=== PATIENT | female | born 1955 | race Caucasian/White ===

== ENCOUNTER 2016-04-02 16:03 | Inpatient (IN) | payer OTHER ==
[~2016-04-02] VITALS: Ht 162.6 cm; Wt 105.3 kg
[~2016-04-02 16:03] MED LIST: AMIT10TA6 PO; ASPI81TA3 PO; CHOL400C PO; HYDR-906 PO; PARO20TA58 PO; TRAM50TA2 PO
[2016-04-02 18:00] VITALS: BP 127/57; PULSE 80; RESP 18
[2016-04-02 19:30] VITALS: BP 115/58; PULSE 80; RESP 18
[2016-04-02] MEDS ORDERED: MAGNESIUM HYDROXIDE 30ML CUP PO PRN (20:00)
[2016-04-02] MEDS ORDERED: ONDANSETRON 4 MG INJ IV PRN (20:00)
[2016-04-02] MEDS ORDERED: BISACODYL 10 MG SUPP PR PRN (20:00)
[2016-04-02] MEDS ORDERED: BISACODYL (EC) 5 MG TAB PO PRN (20:00)
[2016-04-02] MEDS ORDERED: LACTULOSE 30ML CUP PO PRN (20:00)
[2016-04-02] MEDS ORDERED: ACETAMINOPHEN 325 MG TAB PO PRN (20:00)
[2016-04-02] MEDS: DOCUSATE SODIUM 100 MG CAP PO SCH (20:41)
[2016-04-02] MEDS: SENNA TAB PO SCH (20:46)
[2016-04-02] MEDS: HYDROCODONE/APAP (10/325) TAB PO PRN (20:46)
[2016-04-02] MEDS: AMITRIPTYLINE 10 MG TAB PO SCH (22:00)
[2016-04-03 06:27] LABS: ADD UMIC YES; URINE BILIRUBIN (Dip) NEGATIVE (NEGATIVE); URINE BLOOD (Dip) 2+ (NEGATIVE); URINE COLOR YELLOW (YELLOW); URINE GLUCOSE (Dip) NEGATIVE (NEGATIVE); URINE KETONES (Dip) 15 (NEGATIVE); URINE LEUKOCYTE ESTERASE (Dip) NEGATIVE (NEGATIVE); URINE NITRITE (Dip) NEGATIVE (NEGATIVE); URINE TOTAL PROTEIN (Dip) NEGATIVE (NEGATIVE); URINE UROBILINOGEN (Dip) 1.0 E.U./dL (0.1-1.0)
[2016-04-03 06:47] LABS: MUCUS,URINE MODERATE; SQUAMOUS EPITHELIAL CELL,UR FEW
[2016-04-03 07:13] LABS: BASOPHILS % 0.4 % (0.0-2.0); EOSINOPHILS # 0.1 10^3/ul (0.0-0.5); EOSINOPHILS % 0.7 % (0.0-7.0); HEMATOCRIT 38.3 % (37.0-47.0); HEMOGLOBIN 13.1 g/dl (12.0-16.0); LYMPHOCYTES # 2.4 10^3/ul (0.8-2.9); LYMPHOCYTES % 30.1 % (15.0-51.0); MEAN CORPUSCULAR HEMOGLOBIN 30.1 pg (29.0-33.0); MEAN CORPUSCULAR HGB CONC 34.3 g/dl (32.0-37.0); MEAN CORPUSCULAR VOLUME 87.7 fl (82.0-101.0); MEAN PLATELET VOLUME 8.2 fl (7.4-10.4); MONOCYTE # 0.7 10^3/ul (0.3-0.9); MONOCYTES % 8.4 % (0.0-11.0); NEUTROPHIL # 4.9 10^3/ul (1.6-7.5); NEUTROPHILS % 60.4 % (39.0-77.0); PLATELET COUNT 245 10^3/UL (140-440); RED BLOOD COUNT 4.36 10^6/ul (4.20-5.40); RED CELL DISTRIBUTION WIDTH 13.4 % (11.5-14.5)
[2016-04-03 07:23] LABS: CONDITION 1
[2016-04-03 07:25] LABS: ALBUMIN 3.3 g/dl (3.3-4.9); POTASSIUM 3.1 mmol/L (3.5-5.1)
[2016-04-03 07:27] LABS: CREATININE 0.54 mg/dl (0.44-1.00)
[2016-04-03 07:28] LABS: ALBUMIN/GLOBULIN RATIO 1.13; BILIRUBIN,INDIRECT 0.7 mg/dl (0-1.1); BILIRUBIN,TOTAL 0.7 mg/dl (0.2-1.3); TOTAL PROTEIN 6.2 g/dl (6.1-8.1)
[2016-04-03 07:29] LABS: CALCIUM 8.6 mg/dl (8.4-10.2)
[2016-04-03 07:30] VITALS: BP 120/57; PULSE 86; RESP 20
[2016-04-03] MEDS: HYDROCODONE/APAP (10/325) TAB PO PRN ×4 (09:02→23:00)
[2016-04-03] MEDS: SENNA TAB PO SCH ×2 (09:24→21:00)
[2016-04-03] MEDS: CHOLECALCIFEROL 400 UNITS TAB PO SCH (09:24)
[2016-04-03] MEDS: DOCUSATE SODIUM 100 MG CAP PO SCH ×2 (09:24→21:00)
[2016-04-03] MEDS: AMLODIPINE 10 MG TAB PO SCH (09:25)
[2016-04-03] MEDS: PAROXETINE 20 MG TAB PO SCH (09:27)
--- NOTE | 2016-04-03 13:02 | CONS ---
DATE OF ADMISSION: 04/02/2016 DATE OF CONSULTATION: 04/03/2016 REHABILITATION POST-ADMISSION PHYSICIAN EVALUATION REHABILITATION IMPAIRMENT CATEGORY: Lumbar spinal stenosis with lumbar spondylolisthesis and radicu lopathy status post decompressive laminectomy and interbody fusion. ACTIVE COMORBIDITIES: 1. Acute pain syndrome. 2. Depression. 3. Migraine headaches. 4. Impairments in self-care and mobility. HISTORY OF PRESENT ILLNESS: The patient is a pleasant 60-year-old female with a history of severe r adiating low back pain despite conservative measures. The patient underwent a lumbar laminectomy wi th interbody fusion on 03/28/2016. The patient's postoperative course has been notable for acute po stoperative pain in addition to significant impairments in self-care and mobility as compared to [place]. The patient has been cleared to transfer to the rehabilitation unit for comprehensive interd isciplinary rehab care. FUNCTIONAL HISTORY: Prior to recent events, she was independent in self-care tasks and mobility. C urrently, the patient requires minimal to moderate assist for self-care and mobility tasks. SOCIAL HISTORY: The patient reports living at home and hopes to return there upon discharge. PAST MEDICAL HISTORY: 1. Lumbar radiculopathy and spondylolisthesis as described above. 2. Depression. 3. Migraine headaches. CURRENT MEDICATIONS: 1. [place] p.r.n. 2. Elavil 10 mg p.o. at bedtime. 3. Norvasc 10 mg p.o. daily. 4. Flexeril 10 mg p.o. t.i.d. p.r.n. 5. Dilaudid p.r.n. 6. Paxil 20 mg p.o. daily. 7. Senokot 2 tabs p.o. b.i.d. ALLERGIES: THE PATIENT WITH NO KNOWN DRUG ALLERGIES. PHYSICAL EXAMINATION: VITAL SIGNS: The patient is currently afebrile with stable vital signs. HEENT: Extraocular motion intact. Oropharynx clear. NECK: Supple. LUNGS: Clear anteriorly. CARDIAC: S1, S2. ABDOMEN: Soft, nontender, positive bowel sounds. NEUROLOGIC: She is awake and alert and oriented x3. She can follow simple 1-step commands. Crania l nerves are grossly intact. She has good strength in bilateral upper extremity, antigravity streng th in bilateral lower extremity, impaired dynamic balance. PLAN: The patient has been admitted for comprehensive interdisciplinary acute rehab and is anticipa martha to tolerate 3 hours of daily therapy in divided doses for at least 5/7 days a week. Treatment p yvrose will include: 1. Physical therapy to focus on bed mobility, transfers, and household ambulation with the goal of having the patient reach standby assist level. 2. Occupational therapy to focus on hygiene, grooming, dressing, bathing, and toileting activities with goal of having the patient reach standby assist level. 3. Rehabilitation nursing for carryover of therapeutic interventions with the goal of continent of bowel and bladder and the goal of pain adequately managed on oral medications. ESTIMATED LENGTH OF STAY: 10 days. DISPOSITION GOAL: Home. REHABILITATION BARRIER: Pain. INTERVENTION FOR BARRIER: Comprehensive interdisciplinary approach. I acknowledge that I performed a full physical examination on this patient within 24 hours of admiss ion to the rehabilitation unit and believe the patient is a good candidate for comprehensive interdi sciplinary rehab care and is anticipated to make reasonable goals in a reasonable period of time as outlined above. Dictated By: SCOOTER RIZO/JOSEPHINE Conf#: [id number] DID#: [id number]
--- NOTE | 2016-04-03 14:51 | PN ---
Date/Time of Note Date/Time of Note DATE: 04/03/16 TIME: 14:49 Assessment/Plan VTE Prophylaxis VTE Prophylaxis Intervention: other Assessment/Plan Chief Complaint/Hosp Course 1) back pain - s/p surgery - acute rehab Problems: Subjective 24 Hr Interval Summary Free Text/Dictation Patient comes in with back pain, is s/p surgery and is not getting acute rehab Exam/Review of Systems Vital Signs Vitals Vital Signs Date Time Temp Pulse Resp B/P Pulse Ox O2 Delivery O2 Flow Rate FiO2 04/03/16 07:30 98.4 86 20 120/57 98 Room Air Exam Constitutional: alert, well developed Neck: supple Respiratory: clear to auscultation Cardiovascular: regular rate and rhythm Gastrointestinal: non-tender, soft Extremities: normal pulses Results Result Diagram: 04/03/16 0650 04/03/16 0650 Results 24 hrs Laboratory Tests Test 04/03/16 04:00 04/03/16 06:50 Urine Bilirubin NEGATIVE Urine Calcium Oxalate Crystals OCCASIONAL Urine Clarity CLEAR Urine Color YELLOW Urine Glucose NEGATIVE Urine Hemoglobin 2+ H Urine Ketones 15 Urine Leukocyte Esterase NEGATIVE Urine Microscopic RBC 2-5 Urine Microscopic WBC NONE SEEN Urine Mucus MODERATE Urine Nitrite NEGATIVE Urine Specific [place] 1.010 Urine Squamous Epithelial Cells FEW Urine Total Protein NEGATIVE Urine Urobilinogen 1.0 E.U./dL Urine pH 6.5 Alanine Aminotransferase (ALT/SGPT) 37 Albumin 3.3 Albumin/Globulin Ratio 1.13 Alkaline Phosphatase 96 Anion Gap 13 Aspartate Amino Transf (AST/SGOT) 32 Basophils # 0.0 Basophils % 0.4 Blood Urea Nitrogen 11 Calcium Level 8.6 Carbon Dioxide Level 34 H Chloride Level 97 Creatinine 0.54 Direct Bilirubin 0.00 Eosinophils # 0.1 Eosinophils % 0.7 Globulin 2.90 Glucose Level 94 Hematocrit 38.3 Hemoglobin 13.1 Indirect Bilirubin 0.7 Lymphocytes # 2.4 Lymphocytes % 30.1 Mean Corpuscular Hemoglobin 30.1 Mean Corpuscular Hemoglobin Concent 34.3 Mean Corpuscular Volume 87.7 Mean Platelet Volume 8.2 Monocytes # 0.7 Monocytes % 8.4 Neutrophils # 4.9 Neutrophils % 60.4 Nucleated Red Blood Cells # 0.0 Nucleated Red Blood Cells % 0.0 Platelet Count 245 Potassium Level 3.1 L Red Blood Count 4.36 Red Cell Distribution Width 13.4 Sodium Level 141 Total Bilirubin 0.7 Total Protein 6.2 White Blood Count 8.0 Medications Medications Current Medications Docusate Sodium (Colace) 100 mg BID PO Last administered on 04/03/16at 09:24; Admin Dose 100 MG; Start 04/02/16 at 21:00 Acetaminophen (Tylenol Tab) 650 mg Q4H PRN PO PAIN Last administered on at 13:10; Admin Dose 650 MG; Start 04/02/16 at 20:00 Bisacodyl (Dulcolax Supp) 10 mg DAILY PRN [place] CONSTIPATION; Start 04/02/16 at 20:00 Magnesium Hydroxide (Milk Of Mag) 30 ml BID PRN PO CONSTIPATION; Start at 20:00 Lactulose (Enulose) 20 gm DAILY PRN PO CONSTIPATION; Start 04/02/16 at 20:00 Ondansetron HCl (Zofran Inj) 4 mg Q4H PRN IV NAUSEA AND/OR VOMITING; Start at 20:00 Amitriptyline HCl (Elavil) 10 mg QHS PO ; Start 04/02/16 at 21:00 Paroxetine HCl (Paxil) 20 mg DAILY PO Last administered on 04/03/16at 09:27; Admin Dose 20 MG; Start 04/03/16 at 09:00 Cholecalciferol (Vitamin D) 400 units DAILY PO Last administered on 04/03/16at 09:24; Admin Dose 400 UNITS; Start 04/03/16 at 09:00 Hydromorphone HCl (Dilaudid) 1 mg Q4H PRN IV PAIN; Start 04/02/16 at 20:00 Cyclobenzaprine HCl (Flexeril) 10 mg TID PRN PO MUSCLE SPASMS; Start 04/02/16 at 20:00 Bisacodyl (Dulcolax) 5 mg DAILY PRN PO CONSTIPATION; Start 04/02/16 at 20:00 Senna (Senokot) 2 tab BID PO Last administered on 04/03/16at 09:24; Admin Dose 2 TAB; Start 04/02/16 at 21:00 Amlodipine Besylate (Norvasc) 10 mg DAILY PO Last administered on 04/03/16at 09 :25; Admin Dose 10 MG; Start 04/03/16 at 09:00 Hydralazine HCl (Apresoline) 25 mg Q6H PRN PO ELEVATED BLOOD PRESSURE; Start 04/02/16 at 20:00 Acetaminophen/ Hydrocodone Bitart ([place] (10)) 1 tab Q4H PRN PO mild to mod pain Last administered on 04/03/16at 12:24; Admin Dose 1 TAB; Start at 13:00 JARVIS WITT Apr 03, 2016 14:50
[2016-04-03 20:05] VITALS: BP 122/56; PULSE 95; RESP 18
[2016-04-03] MEDS: AMITRIPTYLINE 10 MG TAB PO SCH (21:04)
[2016-04-04] MEDS: HYDROCODONE/APAP (10/325) TAB PO PRN ×3 (07:05→20:43)
[2016-04-04 08:17] VITALS: BP 141/66; PULSE 90; RESP 20
[2016-04-04] MEDS: SENNA TAB PO SCH ×2 (08:55→21:00)
[2016-04-04] MEDS: PAROXETINE 20 MG TAB PO SCH (08:55)
[2016-04-04] MEDS: DOCUSATE SODIUM 100 MG CAP PO SCH ×2 (08:55→21:00)
[2016-04-04] MEDS: CHOLECALCIFEROL 400 UNITS TAB PO SCH (08:55)
[2016-04-04] MEDS: AMLODIPINE 10 MG TAB PO SCH (08:55)
[2016-04-04] MEDS ORDERED: POTASSIUM CHLORIDE (SR) 20 MEQ TAB PO STA (11:02)
[2016-04-04] MEDS: HYDROmorphONE 1 MG/ML SYG IV PRN ×2 (11:19→17:29)
--- NOTE | 2016-04-04 12:36 | CONS ---
Date/Time of Note Date/Time of Note DATE: 04/04/16 TIME: 12:35 Consult Date/Type/Reason Admit Date/Time Apr 02, 2016 at 17:40 Initial Consult Date Subjective c/o BUNCH after BP med Objective min assist Vital Signs Date Time Temp Pulse Resp B/P Pulse Ox O2 Delivery O2 Flow Rate FiO2 04/04/16 08:17 98.8 90 20 141/66 91 Room Air Intake and Output 04/03/16 04/03/16 04/04/16 14:59 22:59 06:59 Intake Total 300 ml Output Total 1 ml 500 ml Balance -1 ml -200 ml Results/Medications Result Diagram: 04/03/16 0650 04/03/16 0650 Medications Current Medications Docusate Sodium (Colace) 100 mg BID PO Last administered on 04/04/16at 08:55; Admin Dose 100 MG; Start 04/02/16 at 21:00 Acetaminophen (Tylenol Tab) 650 mg Q4H PRN PO PAIN Last administered on at 13:10; Admin Dose 650 MG; Start 04/02/16 at 20:00 Bisacodyl (Dulcolax Supp) 10 mg DAILY PRN [place] CONSTIPATION; Start 04/02/16 at 20:00 Magnesium Hydroxide (Milk Of Mag) 30 ml BID PRN PO CONSTIPATION; Start at 20:00 Lactulose (Enulose) 20 gm DAILY PRN PO CONSTIPATION; Start 04/02/16 at 20:00 Ondansetron HCl (Zofran Inj) 4 mg Q4H PRN IV NAUSEA AND/OR VOMITING; Start at 20:00 Amitriptyline HCl (Elavil) 10 mg QHS PO Last administered on 04/03/16at 21:04; Admin Dose 10 MG; Start 04/02/16 at 21:00 Paroxetine HCl (Paxil) 20 mg DAILY PO Last administered on 04/04/16at 08:55; Admin Dose 20 MG; Start 04/03/16 at 09:00 Cholecalciferol (Vitamin D) 400 units DAILY PO Last administered on 04/04/16at 08:55; Admin Dose 400 UNITS; Start 04/03/16 at 09:00 Hydromorphone HCl (Dilaudid) 1 mg Q4H PRN IV PAIN Last administered on at 11:19; Admin Dose 1 MG; Start 04/02/16 at 20:00 Cyclobenzaprine HCl (Flexeril) 10 mg TID PRN PO MUSCLE SPASMS; Start 04/02/16 at 20:00 Bisacodyl (Dulcolax) 5 mg DAILY PRN PO CONSTIPATION; Start 04/02/16 at 20:00 Senna (Senokot) 2 tab BID PO Last administered on 04/04/16at 08:55; Admin Dose 2 TAB; Start 04/02/16 at 21:00 Amlodipine Besylate (Norvasc) 10 mg DAILY PO Last administered on 04/04/16at 08 :55; Admin Dose 10 MG; Start 04/03/16 at 09:00 Hydralazine HCl (Apresoline) 25 mg Q6H PRN PO ELEVATED BLOOD PRESSURE; Start 04/02/16 at 20:00 Acetaminophen/ Hydrocodone Bitart ([place] (10/325)) 1 tab Q4H PRN PO mild to mod pain Last administered on 04/04/16at 11:11; Admin Dose 1 TAB; Start at 13:00 Assessment/Plan Additional Assessment/Plan Rehab- Lumbar spinal stenosis with lumbar spondylolisthesis and radiculopathy status post decompressive laminectomy and interbody fusion. Activities as tolerated Acute pain syndrome- med for BUNCH Depression. . SCOOTER ESCOTO MD Apr 04, 2016 12:36
[2016-04-04 20:00] VITALS: BP 123/58; PULSE 83; RESP 18
[2016-04-04] MEDS: AMITRIPTYLINE 10 MG TAB PO SCH (20:43)
[2016-04-05] MEDS: HYDROCODONE/APAP (10/325) TAB PO PRN ×3 (06:50→20:35)
[2016-04-05 07:30] VITALS: BP 117/64; PULSE 82; RESP 18
[2016-04-05] MEDS: DOCUSATE SODIUM 100 MG CAP PO SCH ×2 (08:10→20:35)
[2016-04-05] MEDS: CHOLECALCIFEROL 400 UNITS TAB PO SCH (08:10)
[2016-04-05] MEDS: AMLODIPINE 10 MG TAB PO SCH (08:10)
[2016-04-05] MEDS: PAROXETINE 20 MG TAB PO SCH (08:10)
[2016-04-05] MEDS: SENNA TAB PO SCH ×2 (08:10→20:34)
--- NOTE | 2016-04-05 11:36 | CONS ---
Date/Time of Note Date/Time of Note DATE: 04/05/16 TIME: 11:35 Consult Date/Type/Reason Admit Date/Time Apr 02, 2016 at 17:40 Subjective feeling much better today Objective min assist Vital Signs Date Time Temp Pulse Resp B/P Pulse Ox O2 Delivery O2 Flow Rate FiO2 04/05/16 07:30 98.3 82 18 117/64 96 Room Air Intake and Output 04/04/16 04/04/16 04/05/16 14:59 22:59 06:59 Intake Total 480 ml 240 ml 680 ml Output Total 500 ml 200 ml 350 ml Balance -20 ml 40 ml 330 ml Results/Medications Result Diagram: 04/03/16 0650 04/03/16 0650 Medications Current Medications Docusate Sodium (Colace) 100 mg BID PO Last administered on 04/05/16at 08:10; Admin Dose 100 MG; Start 04/02/16 at 21:00 Acetaminophen (Tylenol Tab) 650 mg Q4H PRN PO PAIN Last administered on at 13:10; Admin Dose 650 MG; Start 04/02/16 at 20:00 Bisacodyl (Dulcolax Supp) 10 mg DAILY PRN [place] CONSTIPATION; Start 04/02/16 at 20:00 Magnesium Hydroxide (Milk Of Mag) 30 ml BID PRN PO CONSTIPATION; Start at 20:00 Lactulose (Enulose) 20 gm DAILY PRN PO CONSTIPATION; Start 04/02/16 at 20:00 Ondansetron HCl (Zofran Inj) 4 mg Q4H PRN IV NAUSEA AND/OR VOMITING; Start at 20:00 Amitriptyline HCl (Elavil) 10 mg QHS PO Last administered on 04/04/16at 20:43; Admin Dose 10 MG; Start 04/02/16 at 21:00 Paroxetine HCl (Paxil) 20 mg DAILY PO Last administered on 04/05/16at 08:10; Admin Dose 20 MG; Start 04/03/16 at 09:00 Cholecalciferol (Vitamin D) 400 units DAILY PO Last administered on 04/05/16at 08:10; Admin Dose 400 UNITS; Start 04/03/16 at 09:00 Hydromorphone HCl (Dilaudid) 1 mg Q4H PRN IV PAIN Last administered on at 17:29; Admin Dose 1 MG; Start 04/02/16 at 20:00 Cyclobenzaprine HCl (Flexeril) 10 mg TID PRN PO MUSCLE SPASMS; Start 04/02/16 at 20:00 Bisacodyl (Dulcolax) 5 mg DAILY PRN PO CONSTIPATION; Start 04/02/16 at 20:00 Senna (Senokot) 2 tab BID PO Last administered on 04/05/16at 08:10; Admin Dose 2 TAB; Start 04/02/16 at 21:00 Amlodipine Besylate (Norvasc) 10 mg DAILY PO Last administered on 04/05/16at 08 :10; Admin Dose 10 MG; Start 04/03/16 at 09:00 Hydralazine HCl (Apresoline) 25 mg Q6H PRN PO ELEVATED BLOOD PRESSURE; Start 04/02/16 at 20:00; Status Future Hold Acetaminophen/ Hydrocodone Bitart ([place] (10/325)) 1 tab Q4H PRN PO mild to mod pain Last administered on 04/05/16at 06:50; Admin Dose 1 TAB; Start at 13:00 Assessment/Plan Additional Assessment/Plan Rehab- Lumbar spinal stenosis with lumbar spondylolisthesis and radiculopathy status post decompressive laminectomy and interbody fusion. Continue treatment plan Acute pain syndrome- better Depression. SCOOTER ESCOTO MD Apr 05, 2016 11:36
[2016-04-05] MEDS: HYDROmorphONE 1 MG/ML SYG IV PRN ×2 (13:37→21:56)
--- NOTE | 2016-04-05 15:23 | PN ---
Date/Time of Note Date/Time of Note DATE: 04/05/16 TIME: 15:22 Assessment/Plan VTE Prophylaxis VTE Prophylaxis Intervention: other Assessment/Plan Chief Complaint/Hosp Course 1) back pain - s/p surgery - acute rehab Problems: Subjective 24 Hr Interval Summary Free Text/Dictation Continues to have leg and back pain as well as headache Exam/Review of Systems Vital Signs Vitals Vital Signs Date Time Temp Pulse Resp B/P Pulse Ox O2 Delivery O2 Flow Rate FiO2 04/05/16 07:30 98.3 82 18 117/64 96 Room Air Intake and Output 04/04/16 04/04/16 04/05/16 15:00 23:00 07:00 Intake Total 480 ml 240 ml 680 ml Output Total 500 ml 200 ml 350 ml Balance -20 ml 40 ml 330 ml Exam Neck: supple Respiratory: clear to auscultation Cardiovascular: regular rate and rhythm Gastrointestinal: non-tender, soft Extremities: normal pulses Results Result Diagram: 04/03/16 0650 04/03/16 0650 Medications Medications Current Medications Docusate Sodium (Colace) 100 mg BID PO Last administered on 04/05/16at 08:10; Admin Dose 100 MG; Start 04/02/16 at 21:00 Acetaminophen (Tylenol Tab) 650 mg Q4H PRN PO PAIN Last administered on at 13:10; Admin Dose 650 MG; Start 04/02/16 at 20:00 Bisacodyl (Dulcolax Supp) 10 mg DAILY PRN [place] CONSTIPATION; Start 04/02/16 at 20:00 Magnesium Hydroxide (Milk Of Mag) 30 ml BID PRN PO CONSTIPATION; Start at 20:00 Lactulose (Enulose) 20 gm DAILY PRN PO CONSTIPATION; Start 04/02/16 at 20:00 Ondansetron HCl (Zofran Inj) 4 mg Q4H PRN IV NAUSEA AND/OR VOMITING; Start at 20:00 Amitriptyline HCl (Elavil) 10 mg QHS PO Last administered on 04/04/16at 20:43; Admin Dose 10 MG; Start 04/02/16 at 21:00 Paroxetine HCl (Paxil) 20 mg DAILY PO Last administered on 04/05/16at 08:10; Admin Dose 20 MG; Start 04/03/16 at 09:00 Cholecalciferol (Vitamin D) 400 units DAILY PO Last administered on 04/05/16 08:10; Admin Dose 400 UNITS; Start 04/03/16 at 09:00 Hydromorphone HCl (Dilaudid) 1 mg Q4H PRN IV PAIN Last administered on at 13:37; Admin Dose 1 MG; Start 04/02/16 at 20:00 Cyclobenzaprine HCl (Flexeril) 10 mg TID PRN PO MUSCLE SPASMS; Start 04/02/16 at 20:00 Bisacodyl (Dulcolax) 5 mg DAILY PRN PO CONSTIPATION; Start 04/02/16 at 20:00 Senna (Senokot) 2 tab BID PO Last administered on 04/05/16at 08:10; Admin Dose 2 TAB; Start 04/02/16 at 21:00 Amlodipine Besylate (Norvasc) 10 mg DAILY PO Last administered on 04/05/16at 08 :10; Admin Dose 10 MG; Start 04/03/16 at 09:00 Hydralazine HCl (Apresoline) 25 mg Q6H PRN PO ELEVATED BLOOD PRESSURE; Start 04/02/16 at 20:00; Status Future Hold Acetaminophen/ Hydrocodone Bitart ([place] (10)) 1 tab Q4H PRN PO mild to mod pain Last administered on 04/05/16at 12:30; Admin Dose 1 TAB; Start at 13:00 JARVIS WITT Apr 05, 2016 15:23
[2016-04-05] MEDS ORDERED: HYDROmorphONE 1 MG/ML SYG IV STA (16:53)
[2016-04-05 20:00] VITALS: BP 116/57; PULSE 75; RESP 18
[2016-04-05] MEDS: AMITRIPTYLINE 10 MG TAB PO SCH (20:35)
[2016-04-06] MEDS: CYCLOBENZAPRINE 10 MG TAB PO PRN ×3 (00:32→15:35)
[2016-04-06] MEDS: HYDROCODONE/APAP (10/325) TAB PO PRN ×3 (00:35→18:04)
[2016-04-06 08:00] VITALS: BP 110/56; PULSE 92; RESP 18
[2016-04-06] MEDS: HYDROmorphONE 1 MG/ML SYG IV PRN ×4 (08:56→18:32)
[2016-04-06] MEDS: DOCUSATE SODIUM 100 MG CAP PO SCH ×3 (09:00→21:00)
[2016-04-06] MEDS: SENNA TAB PO SCH ×3 (09:00→21:00)
[2016-04-06] MEDS: PAROXETINE 20 MG TAB PO SCH (09:02)
[2016-04-06] MEDS: AMLODIPINE 10 MG TAB PO SCH (09:02)
[2016-04-06] MEDS: CHOLECALCIFEROL 400 UNITS TAB PO SCH (09:02)
--- NOTE | 2016-04-06 10:50 | PN ---
Date/Time of Note Date/Time of Note DATE: 04/06/16 TIME: 10:49 Assessment/Plan VTE Prophylaxis VTE Prophylaxis Intervention: ambulation Lines/Catheters IV Catheter Type (from Nrsg): Saline Lock Assessment/Plan Chief Complaint/Hosp Course 1) back pain - s/p surgery - acute rehab Problems: Subjective 24 Hr Interval Summary Free Text/Dictation Unable to interview patient as she is away from room Exam/Review of Systems Vital Signs Vitals Vital Signs Date Time Temp Pulse Resp B/P Pulse Ox O2 Delivery O2 Flow Rate FiO2 04/05/16 20:00 98.3 75 18 116/57 96 Room Air Intake and Output 04/05/16 04/05/16 04/06/16 15:00 23:00 07:00 Intake Total 360 ml 481 ml Balance 360 ml 481 ml Exam Unable to examine the patient as she is away from room Results Result Diagram: 04/03/16 0650 04/03/16 0650 Medications Medications Current Medications Docusate Sodium (Colace) 100 mg BID PO Last administered on 04/05/16at 20:35; Admin Dose 100 MG; Start 04/02/16 at 21:00 Acetaminophen (Tylenol Tab) 650 mg Q4H PRN PO PAIN Last administered on at 13:10; Admin Dose 650 MG; Start 04/02/16 at 20:00 Bisacodyl (Dulcolax Supp) 10 mg DAILY PRN [place] CONSTIPATION; Start 04/02/16 at 20:00 Magnesium Hydroxide (Milk Of Mag) 30 ml BID PRN PO CONSTIPATION; Start at 20:00 Lactulose (Enulose) 20 gm DAILY PRN PO CONSTIPATION; Start 04/02/16 at 20:00 Ondansetron HCl (Zofran Inj) 4 mg Q4H PRN IV NAUSEA AND/OR VOMITING; Start at 20:00 Amitriptyline HCl (Elavil) 10 mg QHS PO Last administered on 04/05/16at 20:35; Admin Dose 10 MG; Start 04/02/16 at 21:00 Paroxetine HCl (Paxil) 20 mg DAILY PO Last administered on 04/06/16at 09:02; Admin Dose 20 MG; Start 04/03/16 at 09:00 Cholecalciferol (Vitamin D) 400 units DAILY PO Last administered on 04/06/16 09:02; Admin Dose 400 UNITS; Start 04/03/16 at 09:00 Hydromorphone HCl (Dilaudid) 1 mg Q4H PRN IV PAIN Last administered on 08:56; Admin Dose 1 MG; Start 04/02/16 at 20:00 Cyclobenzaprine HCl (Flexeril) 10 mg TID PRN PO MUSCLE SPASMS Last administered on 04/06/16 09:14; Admin Dose 10 MG; Start 04/02/16 at 20:00 Bisacodyl (Dulcolax) 5 mg DAILY PRN PO CONSTIPATION; Start 04/02/16 at 20:00 Senna (Senokot) 2 tab BID PO Last administered on 04/05/16 20:34; Admin Dose 2 TAB; Start 04/02/16 at 21:00 Amlodipine Besylate (Norvasc) 10 mg DAILY PO Last administered on 04/06/16 09 :02; Admin Dose 10 MG; Start 04/03/16 at 09:00 Hydralazine HCl (Apresoline) 25 mg Q6H PRN PO ELEVATED BLOOD PRESSURE; Start 04/02/16 at 20:00; Status Future Hold Acetaminophen/ Hydrocodone Bitart ([place] (10325)) 1 tab Q4H PRN PO mild to mod pain Last administered on 04/06/16 00:35; Admin Dose 1 TAB; Start at 13:00 JARVIS WITT Apr 06, 2016 10:50
--- NOTE | 2016-04-06 11:54 | CONS ---
Date/Time of Note Date/Time of Note DATE: 04/06/16 TIME: 11:53 Consult Date/Type/Reason Admit Date/Time Apr 02, 2016 at 17:40 Subjective reports some spasm Objective cga ambulation Vital Signs Date Time Temp Pulse Resp B/P Pulse Ox O2 Delivery O2 Flow Rate FiO2 04/06/16 08:00 98.5 92 18 110/56 97 Room Air Intake and Output 04/05/16 04/05/16 04/06/16 15:00 23:00 07:00 Intake Total 360 ml 481 ml Balance 360 ml 481 ml Results/Medications Result Diagram: 04/03/16 0650 04/03/16 0650 Medications Current Medications Docusate Sodium (Colace) 100 mg BID PO Last administered on 04/05/16at 20:35; Admin Dose 100 MG; Start 04/02/16 at 21:00 Acetaminophen (Tylenol Tab) 650 mg Q4H PRN PO PAIN Last administered on at 13:10; Admin Dose 650 MG; Start 04/02/16 at 20:00 Bisacodyl (Dulcolax Supp) 10 mg DAILY PRN [place] CONSTIPATION; Start 04/02/16 at 20:00 Magnesium Hydroxide (Milk Of Mag) 30 ml BID PRN PO CONSTIPATION; Start at 20:00 Lactulose (Enulose) 20 gm DAILY PRN PO CONSTIPATION; Start 04/02/16 at 20:00 Ondansetron HCl (Zofran Inj) 4 mg Q4H PRN IV NAUSEA AND/OR VOMITING; Start at 20:00 Amitriptyline HCl (Elavil) 10 mg QHS PO Last administered on 04/05/16at 20:35; Admin Dose 10 MG; Start 04/02/16 at 21:00 Paroxetine HCl (Paxil) 20 mg DAILY PO Last administered on 04/06/16at 09:02; Admin Dose 20 MG; Start 04/03/16 at 09:00 Cholecalciferol (Vitamin D) 400 units DAILY PO Last administered on 04/06/16at 09:02; Admin Dose 400 UNITS; Start 04/03/16 at 09:00 Hydromorphone HCl (Dilaudid) 1 mg Q4H PRN IV PAIN Last administered on at 08:56; Admin Dose 1 MG; Start 04/02/16 at 20:00 Cyclobenzaprine HCl (Flexeril) 10 mg TID PRN PO MUSCLE SPASMS Last administered on 04/06/16at 09:14; Admin Dose 10 MG; Start 04/02/16 at 20:00 Bisacodyl (Dulcolax) 5 mg DAILY PRN PO CONSTIPATION; Start 04/02/16 at 20:00 Senna (Senokot) 2 tab BID PO Last administered on 04/05/16at 20:34; Admin Dose 2 TAB; Start 04/02/16 at 21:00 Amlodipine Besylate (Norvasc) 10 mg DAILY PO Last administered on 04/06/16at 09 :02; Admin Dose 10 MG; Start 04/03/16 at 09:00 Hydralazine HCl (Apresoline) 25 mg Q6H PRN PO ELEVATED BLOOD PRESSURE; Start 04/02/16 at 20:00; Status Future Hold Acetaminophen/ Hydrocodone Bitart ([place] (10/325)) 1 tab Q4H PRN PO mild to mod pain Last administered on 04/06/16at 11:28; Admin Dose 1 TAB; Start at 13:00 Baclofen (Lioresal) 10 mg BID PO ; Start 04/06/16 at 11:30 Assessment/Plan Additional Assessment/Plan Rehab- Lumbar spinal stenosis with lumbar spondylolisthesis and radiculopathy status post decompressive laminectomy and interbody fusion. Continue rehab Acute pain syndrome- adjust meds Depression. SCOOTER ESCOTO MD Apr 06, 2016 11:54
[2016-04-06] MEDS: BACLOFEN 10 MG TAB PO SCH ×2 (12:34→21:00)
[2016-04-06 20:00] VITALS: BP 102/50; PULSE 90; RESP 20
[2016-04-06] MEDS: AMITRIPTYLINE 10 MG TAB PO SCH (21:00)
[2016-04-07 08:00] VITALS: BP 104/51; RESP 18
[2016-04-07 08:04] VITALS: BP 104/51; RESP 18
[2016-04-07] MEDS: PAROXETINE 20 MG TAB PO SCH (08:13)
[2016-04-07] MEDS: HYDROmorphONE 1 MG/ML SYG IV PRN ×4 (08:13→19:20)
[2016-04-07] MEDS: BACLOFEN 10 MG TAB PO SCH ×2 (08:47→22:47)
[2016-04-07] MEDS: DOCUSATE SODIUM 100 MG CAP PO SCH ×2 (08:47→22:46)
[2016-04-07] MEDS: AMLODIPINE 10 MG TAB PO SCH (08:47)
[2016-04-07] MEDS: SENNA TAB PO SCH ×2 (08:48→22:47)
[2016-04-07] MEDS: CHOLECALCIFEROL 400 UNITS TAB PO SCH (08:48)
--- NOTE | 2016-04-07 13:12 | PN ---
Date/Time of Note Date/Time of Note DATE: 04/07/16 TIME: 13:11 Assessment/Plan VTE Prophylaxis VTE Prophylaxis Intervention: other Lines/Catheters IV Catheter Type (from Nrsg): Saline Lock Assessment/Plan Chief Complaint/Hosp Course 1) back pain - s/p surgery - acute rehab Problems: Subjective 24 Hr Interval Summary Free Text/Dictation Patient is doing ok Exam/Review of Systems Vital Signs Vitals Vital Signs Date Time Temp Pulse Resp B/P Pulse Ox O2 Delivery O2 Flow Rate FiO2 04/07/16 08:04 98.3 86 18 104/51 97 04/07/16 08:00 Room Air Intake and Output 04/06/16 04/06/16 04/07/16 15:00 23:00 07:00 Intake Total 720 ml 240 ml Output Total 650 ml Balance 70 ml 240 ml Exam Constitutional: well developed Head: atraumatic, normocephalic Neck: supple Respiratory: clear to auscultation Cardiovascular: regular rate and rhythm Gastrointestinal: non-tender, soft Extremities: normal pulses Results Result Diagram: 04/03/16 0650 04/03/16 0650 Medications Medications Current Medications Docusate Sodium (Colace) 100 mg BID PO Last administered on 04/07/16 08:47; Admin Dose 100 MG; Start 04/02/16 at 21:00 Acetaminophen (Tylenol Tab) 650 mg Q4H PRN PO PAIN Last administered on at 13:10; Admin Dose 650 MG; Start 04/02/16 at 20:00 Bisacodyl (Dulcolax Supp) 10 mg DAILY PRN [place] CONSTIPATION; Start 04/02/16 at 20:00 Magnesium Hydroxide (Milk Of Mag) 30 ml BID PRN PO CONSTIPATION; Start at 20:00 Lactulose (Enulose) 20 gm DAILY PRN PO CONSTIPATION; Start 04/02/16 at 20:00 Ondansetron HCl (Zofran Inj) 4 mg Q4H PRN IV NAUSEA AND/OR VOMITING; Start at 20:00 Amitriptyline HCl (Elavil) 10 mg QHS PO Last administered on 04/06/16at 21:00; Admin Dose 10 MG; Start 04/02/16 at 21:00 Paroxetine HCl (Paxil) 20 mg DAILY PO Last administered on 04/07/16 08:13; Admin Dose 20 MG; Start 04/03/16 at 09:00 Cholecalciferol (Vitamin D) 400 units DAILY PO Last administered on 04/07/16 08 :48; Admin Dose 400 UNITS; Start 04/03/16 at 09:00 Cyclobenzaprine HCl (Flexeril) 10 mg TID PRN PO MUSCLE SPASMS Last administered on 04/06/16at 15:35; Admin Dose 10 MG; Start 04/02/16 at 20:00 Bisacodyl (Dulcolax) 5 mg DAILY PRN PO CONSTIPATION; Start 04/02/16 at 20:00 Senna (Senokot) 2 tab BID PO Last administered on 04/07/16 08:48; Admin Dose 2 TAB; Start 04/02/16 at 21:00 Amlodipine Besylate (Norvasc) 10 mg DAILY PO Last administered on 04/07/16 08: 47; Admin Dose 10 MG; Start 04/03/16 at 09:00 Hydralazine HCl (Apresoline) 25 mg Q6H PRN PO ELEVATED BLOOD PRESSURE; Start 04/02/16 at 20:00; Status Future Hold Acetaminophen/ Hydrocodone Bitart ([place] (10/325)) 1 tab Q4H PRN PO mild to mod pain Last administered on 04/06/16at 18:04; Admin Dose 1 TAB; Start at 13:00 Baclofen (Lioresal) 10 mg BID PO Last administered on 04/07/16 08:47; Admin Dose 10 MG; Start 04/06/16 at 11:30 Hydromorphone HCl (Dilaudid) 1 mg Q3H PRN IV PAIN Last administered on 08:13; Admin Dose 1 MG; Start 04/06/16 at 15:00 JARVIS WITT Apr 07, 2016 13:12
[2016-04-07] MEDS: CYCLOBENZAPRINE 10 MG TAB PO PRN ×2 (13:19→22:48)
[2016-04-07] MEDS: HYDROCODONE/APAP (10/325) TAB PO PRN (16:27)
[2016-04-07 20:00] VITALS: BP 120/58; PULSE 87; RESP 21
[2016-04-07 20:16] VITALS: BP 120/58; RESP 21
[2016-04-07] MEDS: AMITRIPTYLINE 10 MG TAB PO SCH (22:48)
[2016-04-08] MEDS: HYDROmorphONE 1 MG/ML SYG IV PRN ×2 (05:19→12:02)
[2016-04-08 07:20] VITALS: BP 126/61; RESP 16
[2016-04-08] MEDS: PAROXETINE 20 MG TAB PO SCH (08:58)
[2016-04-08] MEDS: CHOLECALCIFEROL 400 UNITS TAB PO SCH (08:58)
[2016-04-08] MEDS: DOCUSATE SODIUM 100 MG CAP PO SCH ×2 (08:58→20:34)
[2016-04-08] MEDS: AMLODIPINE 10 MG TAB PO SCH (08:59)
[2016-04-08] MEDS: BACLOFEN 10 MG TAB PO SCH ×2 (08:59→20:34)
[2016-04-08] MEDS: SENNA TAB PO SCH ×2 (09:00→20:34)
[2016-04-08] MEDS: HYDROCODONE/APAP (10/325) TAB PO PRN ×2 (09:03→17:58)
--- NOTE | 2016-04-08 11:32 | CONS ---
Date/Time of Note Date/Time of Note DATE: 04/08/16 TIME: 11:31 Consult Date/Type/Reason Admit Date/Time Apr 02, 2016 at 17:40 Subjective feeling better Objective cga ambulation 150 feet Vital Signs Date Time Temp Pulse Resp B/P Pulse Ox O2 Delivery O2 Flow Rate FiO2 04/08/16 07:20 97.9 97 16 126/61 97 04/07/16 20:00 Room Air Intake and Output 04/07/16 04/07/16 04/08/16 14:59 22:59 06:59 Intake Total 720 ml 960 ml 360 ml Balance 720 ml 960 ml 360 ml Results/Medications Medications Current Medications Docusate Sodium (Colace) 100 mg BID PO Last administered on 04/08/16 08:58; Admin Dose 100 MG; Start 04/02/16 at 21:00 Acetaminophen (Tylenol Tab) 650 mg Q4H PRN PO PAIN Last administered on at 13:10; Admin Dose 650 MG; Start 04/02/16 at 20:00 Bisacodyl (Dulcolax Supp) 10 mg DAILY PRN [place] CONSTIPATION; Start 04/02/16 at 20:00 Magnesium Hydroxide (Milk Of Mag) 30 ml BID PRN PO CONSTIPATION; Start at 20:00 Lactulose (Enulose) 20 gm DAILY PRN PO CONSTIPATION; Start 04/02/16 at 20:00 Ondansetron HCl (Zofran Inj) 4 mg Q4H PRN IV NAUSEA AND/OR VOMITING; Start at 20:00 Amitriptyline HCl (Elavil) 10 mg QHS PO Last administered on 04/07/16 22:48; Admin Dose 10 MG; Start 04/02/16 at 21:00 Paroxetine HCl (Paxil) 20 mg DAILY PO Last administered on 04/08/16 08:58; Admin Dose 20 MG; Start 04/03/16 at 09:00 Cholecalciferol (Vitamin D) 400 units DAILY PO Last administered on 04/08/16 08 :58; Admin Dose 400 UNITS; Start 04/03/16 at 09:00 Cyclobenzaprine HCl (Flexeril) 10 mg TID PRN PO MUSCLE SPASMS Last administered on 04/07/16 22:48; Admin Dose 10 MG; Start 04/02/16 at 20:00 Bisacodyl (Dulcolax) 5 mg DAILY PRN PO CONSTIPATION; Start 04/02/16 at 20:00 Senna (Senokot) 2 tab BID PO Last administered on 04/07/16 22:47; Admin Dose 2 TAB; Start 04/02/16 at 21:00 Amlodipine Besylate (Norvasc) 10 mg DAILY PO Last administered on 04/08/16 08: 59; Admin Dose 10 MG; Start 04/03/16 at 09:00 Hydralazine HCl (Apresoline) 25 mg Q6H PRN PO ELEVATED BLOOD PRESSURE; Start 04/02/16 at 20:00; Status Future Hold Acetaminophen/ Hydrocodone Bitart ([place] (10325)) 1 tab Q4H PRN PO mild to mod pain Last administered on 04/08/16 09:03; Admin Dose 1 TAB; Start 04/03/16 at 13:00 Baclofen (Lioresal) 10 mg BID PO Last administered on 04/08/16 08:59; Admin Dose 10 MG; Start 04/06/16 at 11:30 Hydromorphone HCl (Dilaudid) 1 mg Q3H PRN IV PAIN Last administered on 05:19; Admin Dose 1 MG; Start 04/06/16 at 15:00 Assessment/Plan Additional Assessment/Plan Rehab- Lumbar spinal stenosis with lumbar spondylolisthesis and radiculopathy status post decompressive laminectomy and interbody fusion. Continue rehab activities Acute pain syndrome- continue current meds Depression. SCOOTER ESCOTO MD Apr 08, 2016 11:32
--- NOTE | 2016-04-08 14:01 | PN ---
Date/Time of Note Date/Time of Note DATE: 04/08/16 TIME: 14:00 Assessment/Plan VTE Prophylaxis VTE Prophylaxis Intervention: other Lines/Catheters IV Catheter Type (from Nrsg): Saline Lock Assessment/Plan Chief Complaint/Hosp Course 1) back pain - s/p surgery - acute rehab Problems: Subjective 24 Hr Interval Summary Free Text/Dictation Patient has no complaints Exam/Review of Systems Vital Signs Vitals Vital Signs Date Time Temp Pulse Resp B/P Pulse Ox O2 Delivery O2 Flow Rate FiO2 04/08/16 07:20 97.9 97 16 126/61 97 04/07/16 20:00 Room Air Intake and Output 04/07/16 04/07/16 04/08/16 15:00 23:00 07:00 Intake Total 720 ml 960 ml 360 ml Balance 720 ml 960 ml 360 ml Exam Constitutional: well developed Head: atraumatic, normocephalic Neck: supple Respiratory: clear to auscultation Cardiovascular: regular rate and rhythm Gastrointestinal: non-tender, soft Extremities: normal pulses Medications Medications Current Medications Docusate Sodium (Colace) 100 mg BID PO Last administered on 04/08/16 08:58; Admin Dose 100 MG; Start 04/02/16 at 21:00 Acetaminophen (Tylenol Tab) 650 mg Q4H PRN PO PAIN Last administered on at 13:10; Admin Dose 650 MG; Start 04/02/16 at 20:00 Bisacodyl (Dulcolax Supp) 10 mg DAILY PRN [place] CONSTIPATION; Start 04/02/16 at 20:00 Magnesium Hydroxide (Milk Of Mag) 30 ml BID PRN PO CONSTIPATION; Start at 20:00 Lactulose (Enulose) 20 gm DAILY PRN PO CONSTIPATION; Start 04/02/16 at 20:00 Ondansetron HCl (Zofran Inj) 4 mg Q4H PRN IV NAUSEA AND/OR VOMITING; Start at 20:00 Amitriptyline HCl (Elavil) 10 mg QHS PO Last administered on 04/07/16 22:48; Admin Dose 10 MG; Start 04/02/16 at 21:00 Paroxetine HCl (Paxil) 20 mg DAILY PO Last administered on 04/08/16 08:58; Admin Dose 20 MG; Start 04/03/16 at 09:00 Cholecalciferol (Vitamin D) 400 units DAILY PO Last administered on 04/08/16 08 :58; Admin Dose 400 UNITS; Start 04/03/16 at 09:00 Cyclobenzaprine HCl (Flexeril) 10 mg TID PRN PO MUSCLE SPASMS Last administered on 04/07/16 22:48; Admin Dose 10 MG; Start 04/02/16 at 20:00 Bisacodyl (Dulcolax) 5 mg DAILY PRN PO CONSTIPATION; Start 04/02/16 at 20:00 Senna (Senokot) 2 tab BID PO Last administered on 04/07/16 22:47; Admin Dose 2 TAB; Start 04/02/16 at 21:00 Amlodipine Besylate (Norvasc) 10 mg DAILY PO Last administered on 04/08/16 08: 59; Admin Dose 10 MG; Start 04/03/16 at 09:00 Hydralazine HCl (Apresoline) 25 mg Q6H PRN PO ELEVATED BLOOD PRESSURE; Start 04/02/16 at 20:00; Status Future Hold Acetaminophen/ Hydrocodone Bitart ([place] (10/325)) 1 tab Q4H PRN PO mild to mod pain Last administered on 04/08/16 09:03; Admin Dose 1 TAB; Start 04/03/16 at 13:00 Baclofen (Lioresal) 10 mg BID PO Last administered on 04/08/16 08:59; Admin Dose 10 MG; Start 04/06/16 at 11:30 Hydromorphone HCl (Dilaudid) 1 mg Q3H PRN IV PAIN Last administered on 12:02; Admin Dose 1 MG; Start 04/06/16 at 15:00 JARVIS WITT Apr 08, 2016 14:00
[2016-04-08 20:12] VITALS: BP 104/49; RESP 18
[2016-04-08] MEDS: AMITRIPTYLINE 10 MG TAB PO SCH (20:34)
[2016-04-09] MEDS: CYCLOBENZAPRINE 10 MG TAB PO PRN (05:11)
[2016-04-09 07:30] VITALS: BP 153/69; RESP 18
[2016-04-09] MEDS: HYDROCODONE/APAP (10/325) TAB PO PRN ×2 (07:32→12:24)
[2016-04-09] MEDS: BACLOFEN 10 MG TAB PO SCH (08:26)
[2016-04-09] MEDS: DOCUSATE SODIUM 100 MG CAP PO SCH (08:26)
[2016-04-09] MEDS: SENNA TAB PO SCH (08:26)
[2016-04-09] MEDS: PAROXETINE 20 MG TAB PO SCH (08:26)
[2016-04-09] MEDS: CHOLECALCIFEROL 400 UNITS TAB PO SCH (08:26)
[2016-04-09] MEDS: AMLODIPINE 10 MG TAB PO SCH (08:26)
--- NOTE | 2016-04-09 11:11 | CONS ---
Date/Time of Note Date/Time of Note DATE: 04/09/16 TIME: 11:11 Consult Date/Type/Reason Admit Date/Time Apr 02, 2016 at 17:40 Objective Vital Signs Date Time Temp Pulse Resp B/P Pulse Ox O2 Delivery O2 Flow Rate FiO2 04/08/16 20:12 98.4 95 18 104/49 95 04/07/16 20:00 Room Air Intake and Output 04/08/16 04/08/16 04/09/16 15:00 23:00 07:00 Intake Total 480 ml 240 ml Output Total 400 ml 200 ml Balance 80 ml 40 ml Results/Medications Medications Current Medications Docusate Sodium (Colace) 100 mg BID PO Last administered on 04/09/16 08:26; Admin Dose 100 MG; Start 04/02/16 at 21:00 Acetaminophen (Tylenol Tab) 650 mg Q4H PRN PO PAIN Last administered on at 13:10; Admin Dose 650 MG; Start 04/02/16 at 20:00 Bisacodyl (Dulcolax Supp) 10 mg DAILY PRN [place] CONSTIPATION; Start 04/02/16 at 20:00 Magnesium Hydroxide (Milk Of Mag) 30 ml BID PRN PO CONSTIPATION; Start at 20:00 Lactulose (Enulose) 20 gm DAILY PRN PO CONSTIPATION; Start 04/02/16 at 20:00 Ondansetron HCl (Zofran Inj) 4 mg Q4H PRN IV NAUSEA AND/OR VOMITING; Start at 20:00 Amitriptyline HCl (Elavil) 10 mg QHS PO Last administered on 04/08/16 20:34; Admin Dose 10 MG; Start 04/02/16 at 21:00 Paroxetine HCl (Paxil) 20 mg DAILY PO Last administered on 04/09/16 08:26; Admin Dose 20 MG; Start 04/03/16 at 09:00 Cholecalciferol (Vitamin D) 400 units DAILY PO Last administered on 04/09/16 08 :26; Admin Dose 400 UNITS; Start 04/03/16 at 09:00 Cyclobenzaprine HCl (Flexeril) 10 mg TID PRN PO MUSCLE SPASMS Last administered on 04/09/16 05:11; Admin Dose 10 MG; Start 04/02/16 at 20:00 Bisacodyl (Dulcolax) 5 mg DAILY PRN PO CONSTIPATION; Start 04/02/16 at 20:00 Senna (Senokot) 2 tab BID PO Last administered on 04/08/16 20:34; Admin Dose 2 TAB; Start 04/02/16 at 21:00 Amlodipine Besylate (Norvasc) 10 mg DAILY PO Last administered on 04/09/16 08: 26; Admin Dose 10 MG; Start 04/03/16 at 09:00 Hydralazine HCl (Apresoline) 25 mg Q6H PRN PO ELEVATED BLOOD PRESSURE; Start 04/02/16 at 20:00; Status Future Hold Acetaminophen/ Hydrocodone Bitart ([place] ()) 1 tab Q4H PRN PO mild to mod pain Last administered on 04/09/16 07:32; Admin Dose 1 TAB; Start 04/03/16 at 13:00 Baclofen (Lioresal) 10 mg BID PO Last administered on 04/09/16 08:26; Admin Dose 10 MG; Start 04/06/16 at 11:30 Hydromorphone HCl (Dilaudid) 1 mg Q3H PRN IV PAIN Last administered on 12:02; Admin Dose 1 MG; Start 04/06/16 at 15:00 SCOOTER ESCOTO MD Apr 09, 2016 11:11
--- NOTE | 2016-04-09 13:02 | PN ---
Date/Time of Note Date/Time of Note DATE: 04/09/16 TIME: 13:01 Assessment/Plan VTE Prophylaxis VTE Prophylaxis Intervention: other Lines/Catheters IV Catheter Type (from Nrsg): Saline Lock Assessment/Plan Chief Complaint/Hosp Course 1) back pain - s/p surgery - acute rehab Problems: Subjective 24 Hr Interval Summary Free Text/Dictation Patient is doing well Exam/Review of Systems Vital Signs Vitals Vital Signs Date Time Temp Pulse Resp B/P Pulse Ox O2 Delivery O2 Flow Rate FiO2 04/09/16 07:30 98.1 75 18 153/69 96 04/07/16 20:00 Room Air Intake and Output 04/08/16 04/08/16 04/09/16 15:00 23:00 07:00 Intake Total 480 ml 240 ml Output Total 400 ml 200 ml Balance 80 ml 40 ml Exam Constitutional: well developed Neck: supple Respiratory: clear to auscultation Cardiovascular: regular rate and rhythm Gastrointestinal: non-tender, soft Extremities: normal pulses Medications Medications Current Medications Docusate Sodium (Colace) 100 mg BID PO Last administered on 04/09/16 08:26; Admin Dose 100 MG; Start 04/02/16 at 21:00 Acetaminophen (Tylenol Tab) 650 mg Q4H PRN PO PAIN Last administered on at 13:10; Admin Dose 650 MG; Start 04/02/16 at 20:00 Bisacodyl (Dulcolax Supp) 10 mg DAILY PRN [place] CONSTIPATION; Start 04/02/16 at 20:00 Magnesium Hydroxide (Milk Of Mag) 30 ml BID PRN PO CONSTIPATION; Start at 20:00 Lactulose (Enulose) 20 gm DAILY PRN PO CONSTIPATION; Start 04/02/16 at 20:00 Ondansetron HCl (Zofran Inj) 4 mg Q4H PRN IV NAUSEA AND/OR VOMITING; Start at 20:00 Amitriptyline HCl (Elavil) 10 mg QHS PO Last administered on 04/08/16 20:34; Admin Dose 10 MG; Start 04/02/16 at 21:00 Paroxetine HCl (Paxil) 20 mg DAILY PO Last administered on 04/09/16 08:26; Admin Dose 20 MG; Start 04/03/16 at 09:00 Cholecalciferol (Vitamin D) 400 units DAILY PO Last administered on 04/09/16 08 :26; Admin Dose 400 UNITS; Start 04/03/16 at 09:00 Cyclobenzaprine HCl (Flexeril) 10 mg TID PRN PO MUSCLE SPASMS Last administered on 04/09/16 05:11; Admin Dose 10 MG; Start 04/02/16 at 20:00 Bisacodyl (Dulcolax) 5 mg DAILY PRN PO CONSTIPATION; Start 04/02/16 at 20:00 Senna (Senokot) 2 tab BID PO Last administered on 04/08/16 20:34; Admin Dose 2 TAB; Start 04/02/16 at 21:00 Amlodipine Besylate (Norvasc) 10 mg DAILY PO Last administered on 04/09/16 08: 26; Admin Dose 10 MG; Start 04/03/16 at 09:00 Hydralazine HCl (Apresoline) 25 mg Q6H PRN PO ELEVATED BLOOD PRESSURE; Start 04/02/16 at 20:00; Status Future Hold Acetaminophen/ Hydrocodone Bitart ([place] (10/325)) 1 tab Q4H PRN PO mild to mod pain Last administered on 04/09/16 12:24; Admin Dose 1 TAB; Start 04/03/16 at 13:00 Baclofen (Lioresal) 10 mg BID PO Last administered on 04/09/16 08:26; Admin Dose 10 MG; Start 04/06/16 at 11:30 Hydromorphone HCl (Dilaudid) 1 mg Q3H PRN IV PAIN Last administered on 12:02; Admin Dose 1 MG; Start 04/06/16 at 15:00 JARVIS WITT Apr 09, 2016 13:01
== END 2016-04-09 14:20 | disposition home health service (06) | DRG 946 ==
LOC: VRC 17:40
PROVIDERS: ADMIT Physical Medicine & Rehabilitation; ATTEND Internal Medicine
PROC: F07Z5FZ Bed Mobility Treatment using Assistive, Adaptive, Supportive or Protective Equipment (ICD-10-PCS; principal; 2016-04-02)
PROC: F07Z9ZZ Gait Training/Functional Ambulation Treatment (ICD-10-PCS; 2016-04-02)
PROC: F08Z1ZZ Dressing Techniques Treatment (ICD-10-PCS; 2016-04-02)
PROC: F08Z2ZZ Grooming/Personal Hygiene Treatment (ICD-10-PCS; 2016-04-02)
DX: T85.848A Pain due to other internal prosthetic devices, implants and grafts, initial encounter (principal); F32.9 Major depressive disorder, single episode, unspecified; G89.18 Other acute postprocedural pain; Z74.09 Other reduced mobility; Z98.1 Arthrodesis status; M54.16 Radiculopathy, lumbar region; G43.909 Migraine, unspecified, not intractable, without status migrainosus; G44.89 Other headache syndrome
CPT/HCPCS: 80053; 81001; 81003; 85025; 87081; 87086; 95852; 97001; 97003; 97112; 97116; 97150; 97530; 97535; J1170

== ENCOUNTER 2017-03-21 11:07 | Day surgery (SDC) | payer OTHER ==
[~2017-03-21] VITALS: Ht 165.1 cm; Wt 102.5 kg
[2017-03-21] VITALS (19 sets, daily range): BP systolic 110–181; BP diastolic 67–93; PULSE 85–100; RESP 15–24; Ht 165.1 cm; Wt 102.5 kg
[~2017-03-21 11:07] MED LIST changes: +ALBUTEROL 0.083% (NEB) 2.5 MG/3 ML AMP HHN PRN; -ASPI81TA3 PO; -HYDR-906 PO; +HYDROmorphONE (0.2 MG/ML) 10ML SYG IV PRN; +LABETALOL HCL 20MG INJ IV PRN; +MIDAZOLAM 1 MG/ML 2 ML INJ IV PRN; +ONDANSETRON 4 MG INJ IV PRN; +OXYCODONE/ACETAMINOPHEN (5/325) TAB PO PRN; +SUCCINYLCHOLINE CHLORIDE 100 MG/5 ML SYG IV ONE
--- NOTE | 2017-03-21 12:14 | HPN ---
Date/Time of Note Date/Time of Note DATE: 03/21/17 TIME: 12:14 Interval H&P Admission Note Pt. seen H&P reviewed: No system changes CRISTAL ASENCIO MD Mar 21, 2017 12:14
[2017-03-21] MEDS ORDERED: ASPI-664 PO (12:26)
[2017-03-21] MEDS ORDERED: AMLO-218 PO (12:26)
[2017-03-21] MEDS ORDERED: BUPIVACAINE 0.5% (SDV) 30 ML INJ ONE (12:33)
[2017-03-21] MEDS ORDERED: ROCURONIUM 50 MG INJ ONE (12:39)
[2017-03-21] MEDS ORDERED: NEOSTIGMINE 3 MG/3 ML SYRINGE ONE (12:39)
[2017-03-21] MEDS ORDERED: FENTAnyl 50 MCG/ML VIAL ONE (12:39)
[2017-03-21] MEDS ORDERED: GLYCOPYRROLATE 0.4 MG INJ ONE (12:39)
[2017-03-21] MEDS ORDERED: PROPOFOL 20 ML ONE (12:39)
[2017-03-21] MEDS ORDERED: MIDAZOLAM 1 MG/ML 2 ML INJ ONE (12:39)
[2017-03-21] MEDS ORDERED: CEFAZOLIN 1 GM INJ ONE (12:39)
[2017-03-21] MEDS ORDERED: ONDANSETRON 4 MG INJ ONE (12:40)
[2017-03-21] MEDS ORDERED: DEXAMETHASONE 4 MG/ML 1 ML INJ ONE (12:40)
[2017-03-21] MEDS ORDERED: KETOROLAC 30 MG INJ ONE (13:03)
--- NOTE | 2017-03-21 13:18 | OPR ---
Date/Time of Note Date/Time of Note DATE: 03/21/17 TIME: 13:15 Operative Report Preoperative Diagnosis Right hand third trigger digit Postoperative Diagnosis Same Operation/Procedure Performed Right hand middle digit A1 yoli release Surgeon see signature line Mantel Craftsman None Anesthesia Type: general Estimated Blood Loss: minimal Transfusion none Specimen None Grafts/Implants none Tubes/Drains None Complications none Pt Condition Post Procedure: stable Disposition: PACU Indications Ms. Edwards is a 61-year-old female who was had pain and catching symptoms in right middle digit she is failed nonoperative treatment. She now presents for elective A1 yoli release. Risks and benefits were discussed risks including but not limited to infection bleeding pain wound healing problems recurrence of symptoms along with other medical anesthetic and surgical complications were discussed. Informed consent was obtained. Procedure Description The patient's correct digit was identified in the preoperative area. She is brought back to the operating room where she had general internal anesthesia. Preoperative antibiotics were administered. Timeout was performed Esmarch was used forearm tourniquet was inflated 250 mmHg I then made a standard transverse incision along the distal palmar crease I went through skin subcutaneous tissue easily upon the A1 yoli which is released under direct visualization the digital neurovascular structure were carefully preserved on either side of the tendon at this point I used a freer elevator to make sure there were no constrictive points remaining. At this point I thoroughly irrigated the wound closed the wound with interrupted 3-0 nylon stitches. Dry sterile dressing was applied tourniquet was deflated all digits were warm and well perfused at the end of the case. The patient was then extubated and transported to the recovery room in stable condition. CRISTAL ASENCIO MD Mar 21, 2017 13:18
--- NOTE | 2017-03-21 13:21 | PDOCDIS ---
Discharge Instructions DIAGNOSIS Discharge Diagnosis Right 3rd Trigger Digit CONDITION Patient Condition: Good HOME CARE INSTRUCTIONS: Diet Instructions: Regular ACTIVITY: Activity Restrictions: No Restrictions FOLLOW UP/APPOINTMENTS Follow-up Plan Dr. Cristal Asencio 2 weeks CRISTAL ASENCIO MD Mar 21, 2017 13:21
[2017-03-21] MEDS ORDERED: morphine 2 MG INJ IV PRN ×2 (13:30)
[2017-03-21] MEDS ORDERED: LABETALOL HCL 20MG INJ IV PRN (13:30)
[2017-03-21] MEDS ORDERED: ALBUTEROL 0.083% (NEB) 2.5 MG/3 ML AMP HHN PRN (13:30)
[2017-03-21] MEDS ORDERED: EPHEDrine SULFATE 50 MG/5 ML SYG IV PRN (13:30)
[2017-03-21] MEDS ORDERED: hydrALAzine 20 MG INJ IV PRN (13:30)
[2017-03-21] MEDS ORDERED: ONDANSETRON 4 MG INJ IV PRN (13:30)
[2017-03-21] MEDS ORDERED: TRIMETHOBENZAMIDE 100 MG/ML VIAL IM PRN (13:30)
[2017-03-21] MEDS ORDERED: IPRATROPIUM (NEB) 0.5 MG/2.5 ML AMP HHN PRN (13:30)
[2017-03-21] MEDS ORDERED: OXYCODONE/ACETAMINOPHEN (5/325) TAB PO PRN ×2 (13:30)
[2017-03-21] MEDS ORDERED: FENTAnyl 50 MCG/ML VIAL IV PRN ×3 (13:30)
[2017-03-21] MEDS ORDERED: MEPERIDINE 25 MG INJ IV PRN (13:30)
[2017-03-21] MEDS ORDERED: HYDROmorphONE (0.2 MG/ML) 10ML SYG IV PRN ×3 (13:30)
[2017-03-21] MEDS ORDERED: HYDROCODONE/APAP (5/325) TAB GTB PRN (13:30)
[2017-03-21] MEDS ORDERED: MIDAZOLAM 1 MG/ML 2 ML INJ IV PRN (13:30)
[2017-03-21] MEDS ORDERED: DIPHENHYDRAMINE 50 MG INJ IV PRN (13:30)
== END 2017-03-21 15:34 | disposition home or self-care (01) ==
LOC: SDS 11:07
PROVIDERS: ATTEND Specialist
DX: M65.331 Trigger finger, right middle finger (principal); I10 Essential (primary) hypertension
CPT/HCPCS: 26055; J0690; J1100; J1885; J2250; J2405; J3010; Z7512; Z7610; J2710

== ENCOUNTER 2018-06-03 10:21 | Inpatient (IN) | payer OTHER ==
[2018-06-02 16:39] VITALS: Ht 165.1 cm; Wt 101.8 kg
[2018-06-03] VITALS (27 sets, daily range): BP systolic 56–161; BP diastolic 53–76; PULSE 74–89; RESP 12–35
[~2018-06-03] VITALS: Ht 165.1 cm; Wt 101.8 kg
[~2018-06-03 10:21] MED LIST changes: -ALBUTEROL 0.083% (NEB) 2.5 MG/3 ML AMP HHN PRN; +AMLO-218 PO; +ASPI-817 PO; -HYDROmorphONE (0.2 MG/ML) 10ML SYG IV PRN; -LABETALOL HCL 20MG INJ IV PRN; -MIDAZOLAM 1 MG/ML 2 ML INJ IV PRN; -ONDANSETRON 4 MG INJ IV PRN; -OXYCODONE/ACETAMINOPHEN (5/325) TAB PO PRN; +PARO-2 PO; -PARO20TA58 PO
[2018-06-03] MEDS ORDERED: ASPI81TA52 PO (10:55)
[2018-06-03] MEDS ORDERED: AMLO-147 PO (10:55)
[2018-06-03] MEDS ORDERED: CALC1TAB79 PO (10:56)
[2018-06-03] MEDS ORDERED: PARO-2 PO (10:56)
--- NOTE | 2018-06-03 11:09 | PREAC ---
Date/Time of Note Date/Time of Note DATE: 06/03/18 TIME: 11:04 Anesthesia Eval and Record Evaluation Time Pre-Procedure Interview DATE: 06/03/18 TIME: 11:04 Age 63 Sex female NPO: 8 hrs Preoperative diagnosis lumbar stenosis s/p lumbar fusion 2017 Planned procedure Lumbar 3-4 laminectomy with poss interbody and posterolateral fusion and instrumentation, take down and removal of old lumbar 4-5 screws Past Medical History Past Medical History: Includes Cardio: HTN, Dyslipidemia Pulm: Sleep Apnea (dx 1 year ago), Home CPAP Neuro: Other (chronic low back pain, average 8 pills of [place] per week since 2017) Musculoskeletal: Osteoarthritis GI: Morbid obesity (BMI 37) Psych: Depression Surgery & Anesthesia Issues No known issue Meds Anticoagulation: Yes (last dose ASA 81 mg one week ago) Beta Yinka within 24 hr: No Reason Beta Yinka not given: Pt. not on B-Yinka Reported Medications Paroxetine Hcl* (Paxil*) 20 Mg Tablet, 20 MG PO DAILY, TAB 06/03/18 Calcium Carbonate/Vitamin D3 ([place] 500+D Tablet) 1 Each Tablet, 1 EACH PO YARA LY, TAB 06/03/18 Amlodipine Besylate* (Amlodipine Besylate*) 10 Mg Tablet, 10 MG PO DAILY, #30 TAB 06/03/18 Aspirin (Low Dose Aspirin) 81 Mg Tablet.dr, 81 MG PO DAILY, #30 TAB 06/03/18 Discontinued Reported Medications Amlodipine Besylate* (Norvasc*) 10 Mg Tablet, 20 MG PO DAILY, TAB 03/21/17 Aspirin* (Aspirin* EC) 81 Mg Tablet.dr, 81 MG PO DAILY, TAB 03/21/17 Ergocalciferol (Vitamin D) 400 Unit Capsule, 400 UNIT PO DAILY, CAP 03/28/16 Paroxetine Hcl* (Paxil*) 20 Mg Tablet, 20 MG PO DAILY, TAB 03/28/16 Amitriptyline Hcl* (Amitriptyline Hcl*) 10 Mg Tablet, 10 MG PO QHS, #30 TAB 03/28/16 Tramadol HCl (Tramadol HCl) 50 Mg Tablet, 50 MG PO Q6 PRN for PAIN, #120 TAB 03/28/16 Meds reviewed: Yes Allergies Coded Allergies: No Known Drug Allergies (Verified Allergy, Unknown, 06/03/18) Allergies Reviewed: Yes Labs/Studies Labs Reviewed: Reviewed by anesthesiologist test: N/A Studies: ECG Pre-procedure Exam Airway: Adequate mouth opening, Adequate thyromental dist Mallampati: Mallampati III Teeth: Normal Lung: Normal Heart: Normal ASA Physical Status ASA physical status: 3 Emergency: None Planned Anesthetic General/MAC: ETT Planned Pain Management Parenteral pain med, Local by surgeon Pre-operative Attestations Prior to commencing anesthesia and surgery, the patient was re-evaluated, there was verification of: *The patient's identity *The results of appropriate recent lab work and preoperative vital signs *The above evaluation not changing prior to induction *Anesthetic plan, risk benefits, alternative and complications discussed with patient/family; questions answered; patient/family understands, accepts and wishes to proceed. EVELYN DEMPSEY Jun 03, 2018 11:09
[2018-06-03] MEDS ORDERED: POLYMYXIN/BACITRACIN 1L IRRIG ONE (12:06)
[2018-06-03] MEDS ORDERED: THROMBIN (BOVINE) 5,000 UNIT VIAL TP ONE (12:06)
[2018-06-03] MEDS ORDERED: GELATIN SIZE 100 SPONGE ONE (12:06)
[2018-06-03] MEDS ORDERED: LIDOCAINE 1%/EPI (1:100,000) (MDV) 20 ML ONE (12:09)
[2018-06-03] MEDS ORDERED: ROCURONIUM 50 MG INJ ONE (12:11)
[2018-06-03] MEDS ORDERED: FENTAnyl 50 MCG/ML VIAL ONE (12:11)
[2018-06-03] MEDS ORDERED: ONDANSETRON 4 MG INJ ONE (12:11)
[2018-06-03] MEDS ORDERED: PROPOFOL 20 ML ONE (12:11)
[2018-06-03] MEDS ORDERED: DEXAMETHASONE 4 MG/ML 5 ML INJ ONE (12:11)
[2018-06-03] MEDS ORDERED: CEFAZOLIN 1 GM INJ ONE (12:11)
[2018-06-03] MEDS ORDERED: MIDAZOLAM 1 MG/ML 2 ML INJ ONE (12:11)
[2018-06-03] MEDS ORDERED: GLYCOPYRROLATE 0.4 MG INJ ONE (12:11)
[2018-06-03] MEDS ORDERED: PHENYLephrine (100 MCG/ML) 5ML SYG ONE (12:37)
[2018-06-03] MEDS: CEFAZOLIN 1 GM/50 ML (PMX) 50 ML IVPB SCH ×2 (12:49→21:59)
[2018-06-03] MEDS ORDERED: FENTAnyl 50 MCG/ML VIAL IV PRN ×3 (13:00)
[2018-06-03] MEDS ORDERED: niCARdipine 50 MG in SOD CHLORIDE 0.9% 480 ML IV SCH (13:00)
[2018-06-03] MEDS ORDERED: ONDANSETRON 4 MG INJ IV PRN ×2 (13:00)
[2018-06-03] MEDS ORDERED: MIDAZOLAM 1 MG/ML 2 ML INJ IV PRN (13:00)
[2018-06-03] MEDS ORDERED: HYDROCODONE/APAP (5/325) TAB PO PRN (13:00)
[2018-06-03] MEDS ORDERED: TRIMETHOBENZAMIDE 100 MG/ML VIAL IM PRN (13:00)
[2018-06-03] MEDS ORDERED: OXYCODONE/ACETAMINOPHEN (5/325) TAB PO PRN ×2 (13:00)
[2018-06-03] MEDS ORDERED: ALBUTEROL 0.083% (NEB) 2.5 MG/3 ML AMP HHN PRN (13:00)
[2018-06-03] MEDS ORDERED: EPHEDrine SULFATE 50 MG/5 ML SYG IV PRN (13:00)
[2018-06-03] MEDS ORDERED: LABETALOL HCL 20MG INJ IV PRN (13:00)
[2018-06-03] MEDS ORDERED: HYDROmorphONE 1 MG/5 ML IV SYRINGE IV PRN ×3 (13:00)
[2018-06-03] MEDS ORDERED: hydrALAzine 20 MG INJ IV PRN (13:00)
[2018-06-03] MEDS ORDERED: DIPHENHYDRAMINE 50 MG INJ IV PRN (13:00)
[2018-06-03] MEDS ORDERED: MEPERIDINE 25 MG INJ IV PRN (13:00)
[2018-06-03] MEDS ORDERED: IPRATROPIUM (NEB) 0.5 MG/2.5 ML AMP HHN PRN (13:00)
[2018-06-03] MEDS ORDERED: LABETALOL HCL 20MG INJ ONE (13:38)
[2018-06-03] MEDS ORDERED: SUGAMMADEX SODIUM 200 MG/2 ML VIAL IV ONE (14:14)
--- NOTE | 2018-06-03 14:42 | OPR ---
Date/Time of Note Date/Time of Note DATE: 06/03/18 TIME: 14:39 Operative Report Procedure Date: Jun 03, 2018 Preoperative Diagnosis LUMBAR THREE FOUR SPONDYLOSIS WITH MECHANICAL LOW BACK HOUSE Postoperative Diagnosis SAME Operation/Procedure Performed LUMBAR THREE FOUR LAMINECTOMY WITH POSTEROLATERAL FUSION AND PEDICLE SCREW INSTRUMENTATION WITH REMOVAL OF LUMBAR FIVE SCREWS Surgeon see signature line Check Grader CHRISTINA FLORES Anesthesia Type: general Estimated Blood Loss: 200 - 250 ml's Transfusion none Specimen LAMINA Grafts/Implants none Complications none Pt Condition Post Procedure: stable Disposition: PACU, other Procedure Description SEE DICT DARRON TINAJERO MD Jun 03, 2018 14:42
[2018-06-03] MEDS: DEXTROSE 5%-LR 1,000 ML IV SCH ×2 (17:46→20:13)
[2018-06-03] MEDS: morphine 2 MG INJ IV PRN ×2 (18:46→21:18)
[2018-06-04 00:05] VITALS: BP 119/55; PULSE 91; RESP 18
[2018-06-04] MEDS: morphine 2 MG INJ IV PRN ×2 (02:17→20:44)
[2018-06-04] MEDS: DEXTROSE 5%-LR 1,000 ML IV SCH ×3 (02:18→20:40)
[2018-06-04] MEDS: CEFAZOLIN 1 GM/50 ML (PMX) 50 ML IVPB SCH ×2 (05:30→14:45)
--- NOTE | 2018-06-04 07:24 | CONS ---
Assessment/Plan Assessment/Plan Assessment/Plan (Daily) seen and examined awake alert follows moves all sp lumbar laminectomy with fusion and instrumentation good post op progress lumbar corsett pending pt/ot advance diet Consultation Date/Type/Reason Admit Date/Time Jun 03, 2018 at 10:21 Initial Consult Date Date/Time of Note DATE: 06/04/18 TIME: 07:22 Exam/Review of Systems Exam Vitals Vital Signs Date Temp Pulse Resp B/P (MAP) Pulse Ox O2 O2 Flow FiO2 Time Delivery Rate 06/04/18 99.2 91 18 119/55 97 00:05 (76) 06/03/18 2.0 20:00 06/03/18 Nasal 17:45 Cannula Intake and Output 06/03/18 06/03/18 06/04/18 1515:00 23:00 07:00 IntakeIntake Total 3820 ml 1420 ml OutputOutput Total 710 ml 1150 ml BalanceBalance 3110 ml 270 ml Medications Medication Current Medications Dextrose/Lactated Ringer's 1,000 ml @ 125 mls/hr Q8H IV Last administered on 06/04/18at 02:18; Admin Dose 125 MLS/HR; Start 06/03/18 at 13:00 Cefazolin Sodium 50 ml @ 100 mls/hr Q8 IVPB Last administered on 06/04/18at 05:30; Admin Dose 100 MLS/HR; Start 06/03/18 at 14:00; Stop 06/04/18 at 14:00 Morphine Sulfate (morphine) 2 mg Q2H PRN IV SEVERE PAIN LEVEL 7-10 Last administered on 06/04/18at 02:17; Admin Dose 2 MG; Start 06/03/18 at 13:00 Acetaminophen/ Hydrocodone Bitart ([place] (5/325)) 1 tab Q4H PRN PO MODERATE PAIN LEVEL 4-6 Last administered on 06/04/18at 00:11; Admin Dose 1 TAB; Start 06/03/18 at 13:00 Clonidine (Catapres) 0.1 mg Q4H PRN PO sbp>150; Start 06/03/18 at 13:00 Ondansetron HCl (Zofran Inj) 4 mg Q6H PRN IV NAUSEA AND/OR VOMITING; Start 06/03/18 at 13:00 Amlodipine Besylate (Norvasc) 10 mg DAILY PO ; Start 06/04/18 at 09:00 Paroxetine HCl (Paxil) 20 mg DAILY PO ; Start 06/04/18 at 09:00 DARIUS CANO PA-C Jun 04, 2018 07:24
[2018-06-04 07:46] VITALS: BP 118/56; PULSE 90; RESP 18
[2018-06-04] MEDS: HYDROCODONE/APAP (7.5/325) TAB PO PRN ×3 (08:07→18:48)
--- NOTE | 2018-06-04 11:13 | HP ---
Date/Time of Note Date/Time of Note DATE: 06/04/18 TIME: 11:02 Assessment/Plan VTE Prophylaxis Risk score (from Nsg)>0 risk: 5 SCD applied (from Nsg): Yes Lines/Catheters IV Catheter Type (from Nrsg): Peripheral IV Urinary Cath still in place: Yes Reason Cath still needed: urinary retention Assessment/Plan Assessment/Plan -LUMBAR THREE FOUR SPONDYLOSIS WITH MECHANICAL LOW BACK HOUSE -sp lumbar laminectomy with fusion and instrumentation - per neurosx - MICHAEL W/CPAP - Dietary Assistant -Dr Lynne notified - HTN - Obesity - Depression Dw Dr Hidalgo Results 24hrs Laboratory Tests Test 06/04/18 07:49 Lab Scanned Report REFERENCE LAB HPI/ROS Admit Date/Time Admit Date/Time Jun 03, 2018 at 10:21 ROS Respiratory: other (SLEEP APNEA-uses CPAP at home) Cardiovascular: no complaints Gastrointestinal: no complaints Musculoskeletal: back pain Neurologic: no complaints Endocrine: no complaints Lymphatic: no complaints Psychological: nl mood/affect PMH/Family/Social Past Medical History MICHAEL WITH CPAP obesity depression Medical History: hypertension, other (Chronic Back pain) Medications Current Medications Dextrose/Lactated Ringer's 1,000 ml @ 125 mls/hr Q8H IV Last administered on 06/04/18at 02:18; Admin Dose 125 MLS/HR; Start 06/03/18 at 13:00 Cefazolin Sodium 50 ml @ 100 mls/hr Q8 IVPB Last administered on 06/04/18at 05:30; Admin Dose 100 MLS/HR; Start 06/03/18 at 14:00; Stop 06/04/18 at 14:00 Morphine Sulfate (morphine) 2 mg Q2H PRN IV SEVERE PAIN LEVEL 7-10 Last administered on 06/04/18at 02:17; Admin Dose 2 MG; Start 06/03/18 at 13:00 Clonidine (Catapres) 0.1 mg Q4H PRN PO sbp>150; Start 06/03/18 at 13:00 Ondansetron HCl (Zofran Inj) 4 mg Q6H PRN IV NAUSEA AND/OR VOMITING; Start 05/09 10/23 at 13:00 Amlodipine Besylate (Norvasc) 10 mg DAILY PO ; Start 06/04/18 at 09:00 Paroxetine HCl (Paxil) 20 mg DAILY PO ; Start 06/04/18 at 09:00 Acetaminophen/ Hydrocodone Bitart ([place] (7.5325)) 1 tab Q4H PRN PO MODERATE PAIN LEVEL 4-6 Last administered on 06/04/18at 08:07; Admin Dose 1 TAB; Start 06/04/18 at 07:30 Coded Allergies: No Known Drug Allergies (Verified Allergy, Unknown, 06/03/18) Past Surgical History X 2 Social History Alcohol Use: none Smoking Status: Current every day smoker Drug Use: none Exam/Review of Systems Vital Signs Vitals Vital Signs Date Temp Pulse Resp B/P (MAP) Pulse Ox O2 O2 Flow FiO2 Time Delivery Rate 06/04/18 98.0 90 18 118/56 97 Room Air 07:46 (76) 06/03/18 2.0 20:00 Intake and Output 06/03/18 06/03/18 06/04/18 1515:00 23:00 07:00 IntakeIntake Total 3820 ml 1420 ml OutputOutput Total 710 ml 1150 ml BalanceBalance 3110 ml 270 ml Exam Constitutional: alert, oriented Psych: nl mood/affect Head: normocephalic Eyes: EOMI, nl lids, nl sclera ENMT: nl external ears & nose Neck: supple Respiratory: clear to auscultation Cardiovascular: bruits, other (s1s2) Gastrointestinal: non-tender Musculoskeletal: nl extremities to inspection, range of motion Extremities: normal pulses Neurological: nl mental status AYO BERGER Jun 04, 2018 11:13
[2018-06-04] MEDS: PAROXETINE 20 MG TAB PO SCH (12:38)
[2018-06-04] MEDS: AMLODIPINE 10 MG TAB PO SCH (12:40)
[2018-06-04 14:22] VITALS: BP 134/57; PULSE 87; RESP 18
[2018-06-04] MEDS ORDERED: morphine LIQ (20 MG/ML PO SYG) SL PRN (14:30)
[2018-06-04 19:30] VITALS: BP 124/57; PULSE 88; RESP 18
[2018-06-05 02:56] VITALS: BP 122/58; PULSE 90; RESP 18
[2018-06-05] MEDS: HYDROCODONE/APAP (7.5/325) TAB PO PRN ×3 (05:01→17:53)
[2018-06-05] MEDS: DEXTROSE 5%-LR 1,000 ML IV SCH ×3 (05:06→21:00)
[2018-06-05 07:50] VITALS: BP 121/62; PULSE 82; RESP 19
[2018-06-05] MEDS: PAROXETINE 20 MG TAB PO SCH (08:48)
[2018-06-05] MEDS: AMLODIPINE 10 MG TAB PO SCH (08:49)
--- NOTE | 2018-06-05 13:28 | PN ---
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 - HTN - Obesity - Depression Dw Dr Hidalgo Result Diagram: 06/05/1845406/05/185 Results 24hrs Laboratory Tests Test 06/05/18 04:55 White Blood Count 8.4 Red Blood Count 3.87 L Hemoglobin 11.5 L Hematocrit 35.1 L Mean Corpuscular Volume 90.7 Mean Corpuscular Hemoglobin 29.7 Mean Corpuscular Hemoglobin Concent 32.8 Red Cell Distribution Width 12.8 Platelet Count 175 Mean Platelet Volume 10.6 #H Immature Granulocytes % 0.400 Neutrophils % 70.9 Lymphocytes % 19.5 Monocytes % 8.6 Eosinophils % 0.1 Basophils % 0.5 Nucleated Red Blood Cells % 0.0 Immature Granulocytes # 0.030 Neutrophils # 6.0 Lymphocytes # 1.6 Monocytes # 0.7 Eosinophils # 0.0 Basophils # 0.0 Nucleated Red Blood Cells # 0.0 Sodium Level 138 Potassium Level 3.5 Chloride Level 102 Carbon Dioxide Level 31 Anion Gap 5 Blood Urea Nitrogen 3 L Creatinine 0.41 L Est Glomerular Filtrat Rate mL/min > 60 Glucose Level 122 Calcium Level 8.4 Exam/Review of Systems Exam Vitals Vital Signs Date Temp Pulse Resp B/P (MAP) Pulse Ox O2 O2 Flow FiO2 Time Delivery Rate 06/05/18 98.2 82 19 121/62 96 07:50 (81) 06/04/18 Room Air 14:22 06/03/18 2.0 20:00 Intake and Output 06/04/18 06/04/18 06/05/18 1515:00 23:00 07:00 IntakeIntake Total 1200 ml 1380 ml 1240 ml OutputOutput Total 100 ml 1550 ml 740 ml BalanceBalance 1100 ml -170 ml 500 ml Results Results 24hrs Laboratory Tests Test 06/05/18 04:55 White Blood Count 8.4 Red Blood Count 3.87 L Hemoglobin 11.5 L Hematocrit 35.1 L Mean Corpuscular Volume 90.7 Mean Corpuscular Hemoglobin 29.7 Mean Corpuscular Hemoglobin Concent 32.8 Red Cell Distribution Width 12.8 Platelet Count 175 Mean Platelet Volume 10.6 #H Immature Granulocytes % 0.400 Neutrophils % 70.9 Lymphocytes % 19.5 Monocytes % 8.6 Eosinophils % 0.1 Basophils % 0.5 Nucleated Red Blood Cells % 0.0 Immature Granulocytes # 0.030 Neutrophils # 6.0 Lymphocytes # 1.6 Monocytes # 0.7 Eosinophils # 0.0 Basophils # 0.0 Nucleated Red Blood Cells # 0.0 Sodium Level 138 Potassium Level 3.5 Chloride Level 102 Carbon Dioxide Level 31 Anion Gap 5 Blood Urea Nitrogen 3 L Creatinine 0.41 L Est Glomerular Filtrat Rate mL/min > 60 Glucose Level 122 Calcium Level 8.4 Medications Medication Current Medications Dextrose/Lactated Ringer's 1,000 ml @ 125 mls/hr Q8H IV Last administered on 06/05/18at 05:06; Admin Dose 125 MLS/HR; Start 06/03/18 at 13:00 Morphine Sulfate (morphine) 2 mg Q2H PRN IV SEVERE PAIN LEVEL 7-10 Last administered on 06/04/18at 20:44; Admin Dose 2 MG; Start 06/03/18 at 13:00 Clonidine (Catapres) 0.1 mg Q4H PRN PO sbp>150; Start 06/03/18 at 13:00 Ondansetron HCl (Zofran Inj) 4 mg Q6H PRN IV NAUSEA AND/OR VOMITING; Start 06/03/18 at 13:00 Amlodipine Besylate (Norvasc) 10 mg DAILY PO Last administered on 06/05/18at 08:49; Admin Dose 10 MG; Start 06/04/18 at 09:00 Paroxetine HCl (Paxil) 20 mg DAILY PO Last administered on 06/05/18at 08:48; Admin Dose 20 MG; Start 06/04/18 at 09:00 Acetaminophen/ Hydrocodone Bitart ([place] (7.5-325)) 1 tab Q4H PRN PO MODERATE PAIN LEVEL 4-6 Last administered on 06/05/18at 11:06; Admin Dose 1 TAB; Start 06/04/18 at 07:30 AYO BERGER Jun 05, 2018 13:28
--- NOTE | 2018-06-05 13:31 | OPR ---
DATE OF OPERATION: 06/03/2018 PREOPERATIVE DIAGNOSES: L3 to L4 spondylosis with stenosis, spondylolisthesis, neural foraminal sten osis, mechanical low back pain, lumbar radiculopathy. POSTOPERATIVE DIAGNOSES: L3 to L4 spondylosis with stenosis, spondylolisthesis, neural foraminal javan nosis, mechanical low back pain, lumbar radiculopathy. PROCEDURES: 1. L3 to L4 posterolateral fusion, CPT 66249. 2. L3 bilateral laminectomy, medial fasciotomy and foraminotomy, CPT 31082. 3. L4 bilateral laminectomy, medial facetectomy and foraminotomy, CPT 73639. 4. Replacement of the L3 to L4 pedicle screws, placement of L3 bilateral pedicle screws and removal of the L5 pedicle screws bilaterally, posterior segmental instrumentation of lumbar spine utilizing [employer] matrix screws, CPT 96307. SURGEON: Darron Tinajero MD CRIMINAL COURT JUDGE: CHRISTINA Henderson COMPLICATIONS OF OPERATION: None. ANESTHESIA: General endotracheal. ESTIMATED BLOOD LOSS: Less than 200. COUNTS: Needle count, sponge counts were correct. SPECIMEN: Multiple fragments of the lamina were sent to pathology. INDICATION FOR OPERATION: Please refer to my consultation. HISTORY OF PRESENT ILLNESS: The patient is well known to me. The patient has been seen by me on mul tiple occasions. She underwent a lumbar laminectomy at L4 to L5 level. She did well with that. Now , she has severe spondylosis at the L3 to L4 level. There is neural foraminal stenosis. There is se candie mechanical low back pain. We will proceed with lumbar laminectomy, fusion and instrumentation. Risks and benefits of the operation including anesthesia, infection, bleeding, permanent neurologica l injury and were explained. The patient has agreed to proceed with the operation and signed t he consent. DESCRIPTION OF PROCEDURE: The patient was placed in supine position. Adequate general endotracheal anesthesia was obtained. The patient was turned prone on vertical bolsters. Lumbar region was shave d, prepped and draped in normal sterile fashion, infiltrated with lidocaine with epinephrine solution . Incision was made with 10-blade, was carried to the spinous process of the L3. The L4 and L5 pedi emma screws were identified. The cross connector was removed. The L5 pedicle screws were removed kristen aterally after the rods were removed. The L4 pedicle screws were left intact. At this time, laminectomy of the L3 and L4 was done. There was severe scar formation. The neural fo raminotomy was done on both sides of midline. The nerve roots of L3 and L4 were freed upon. Spinal monitoring showed improvement in signal. The area was irrigated with Bacitracin saline solution. The pedicle of L3 was identified with fluoro scopy. Pedicle screws were placed at the level of L3 bilaterally. These were 6 x 40 mm pedicle scre ws. Rods were loaded on to the pedicle screws. The area was irrigated again with bacitracin saline. The cross connector #6 was placed. Everything was torque tightened to specification. The bone that was harvested during laminectomy was placed as an onlay graft at the L3 to L4 level achieving posterolateral fusion at the L3 to L4 level. After irrigation of the wound, the closure of wound was done with #1 Vicryl for lumbodorsal fascia, 2 -0 and 3-0 Vicryl for subcutaneous tissue and dermis with Steri-Strips for the skin. A medium-sized Hemovac drain was placed in the wound and the epidural space exiting from skin through a separate sta b incision. The patient tolerated the procedure well, was taken to postanesthesia recovery stable, following comm ands. Spinal monitoring showed improvement of signal. Dictated By: DARRON TINAJERO MD SY/JOSEPHINE Conf#: [id number] DID#: [id number] CC: ALFONSO TRIPATHI MD;*EndCC*
--- NOTE | 2018-06-05 18:05 | CONS ---
Assessment/Plan Assessment/Plan Assessment/Plan (Daily) seen and examined doing better less paiin awake alert follows moves all no bm yet,passing flatus, full liquid diet cont pt/ot will dc hemovac demond Consultation Date/Type/Reason Admit Date/Time Jun 03, 2018 at 10:21 Initial Consult Date Date/Time of Note DATE: 06/05/18 TIME: 18:03 Exam/Review of Systems Exam Vitals Vital Signs Date Temp Pulse Resp B/P (MAP) Pulse Ox O2 O2 Flow FiO2 Time Delivery Rate 06/05/18 98.2 82 19 121/62 96 07:50 (81) 06/04/18 Room Air 14:22 06/03/18 2.0 20:00 Intake and Output 06/04/18 06/04/18 06/05/18 1515:00 23:00 07:00 IntakeIntake Total 1200 ml 1380 ml 1240 ml OutputOutput Total 100 ml 1550 ml 740 ml BalanceBalance 1100 ml -170 ml 500 ml Results Result Diagram: 06/05/18 0455 06/05/18 0455 Results 24hrs Laboratory Tests Test 06/05/18 04:55 White Blood Count 8.4 Red Blood Count 3.87 L Hemoglobin 11.5 L Hematocrit 35.1 L Mean Corpuscular Volume 90.7 Mean Corpuscular Hemoglobin 29.7 Mean Corpuscular Hemoglobin Concent 32.8 Red Cell Distribution Width 12.8 Platelet Count 175 Mean Platelet Volume 10.6 #H Immature Granulocytes % 0.400 Neutrophils % 70.9 Lymphocytes % 19.5 Monocytes % 8.6 Eosinophils % 0.1 Basophils % 0.5 Nucleated Red Blood Cells % 0.0 Immature Granulocytes # 0.030 Neutrophils # 6.0 Lymphocytes # 1.6 Monocytes # 0.7 Eosinophils # 0.0 Basophils # 0.0 Nucleated Red Blood Cells # 0.0 Sodium Level 138 Potassium Level 3.5 Chloride Level 102 Carbon Dioxide Level 31 Anion Gap 5 Blood Urea Nitrogen 3 L Creatinine 0.41 L Est Glomerular Filtrat Rate mL/min > 60 Glucose Level 122 Calcium Level 8.4 Medications Medication Current Medications Dextrose/Lactated Ringer's 1,000 ml @ 125 mls/hr Q8H IV Last administered on 06/05/18at 13:53; Admin Dose 125 MLS/HR; Start 06/03/18 at 13:00 Morphine Sulfate (morphine) 2 mg Q2H PRN IV SEVERE PAIN LEVEL 7-10 Last administered on 06/04/18at 20:44; Admin Dose 2 MG; Start 06/03/18 at 13:00 Clonidine (Catapres) 0.1 mg Q4H PRN PO sbp>150; Start 06/03/18 at 13:00 Ondansetron HCl (Zofran Inj) 4 mg Q6H PRN IV NAUSEA AND/OR VOMITING; Start 06/03/18 at 13:00 Amlodipine Besylate (Norvasc) 10 mg DAILY PO Last administered on 06/05/18at 08:49; Admin Dose 10 MG; Start 06/04/18 at 09:00 Paroxetine HCl (Paxil) 20 mg DAILY PO Last administered on 06/05/18at 08:48; Admin Dose 20 MG; Start 06/04/18 at 09:00 Acetaminophen/ Hydrocodone Bitart ([place] (7.5-325)) 1 tab Q4H PRN PO MODERATE PAIN LEVEL 4-6 Last administered on 06/05/18at 17:53; Admin Dose 1 TAB; Start 06/04/18 at 07:30 DARIUS CANO PA-C Jun 05, 2018 18:05
[2018-06-05 20:37] VITALS: BP 121/53; PULSE 81; RESP 18
[2018-06-05] MEDS: morphine 2 MG INJ IV PRN (22:15)
[2018-06-06 02:16] VITALS: BP 122/56; PULSE 86; RESP 19
[2018-06-06] MEDS: HYDROCODONE/APAP (7.5/325) TAB PO PRN ×4 (04:03→22:31)
[2018-06-06] MEDS: DEXTROSE 5%-LR 1,000 ML IV SCH ×3 (04:03→21:00)
[2018-06-06 08:03] VITALS: BP 115/56; PULSE 81; RESP 18
--- NOTE | 2018-06-06 08:52 | CONS ---
Assessment/Plan Assessment/Plan Assessment/Plan (Daily) seen and examined awake alert follows moves all drain dced cont pt/ot pain management may go home in 24hrs. Consultation Date/Type/Reason Admit Date/Time Jun 03, 2018 at 10:21 Initial Consult Date Date/Time of Note DATE: 06/06/18 TIME: 08:51 Exam/Review of Systems Exam Vitals Vital Signs Date Temp Pulse Resp B/P (MAP) Pulse Ox O2 O2 Flow FiO2 Time Delivery Rate 06/06/18 98.5 81 18 115/56 93 Nasal 08:03 (75) Cannula 06/03/18 2.0 20:00 Intake and Output 06/05/18 06/05/18 06/06/18 1515:00 23:00 07:00 IntakeIntake Total 1220 ml 680 ml 1020 ml OutputOutput Total 1630 ml 1260 ml BalanceBalance 1220 ml -950 ml -240 ml Results Result Diagram: 06/05/18 0455 06/05/18 0455 Medications Medication Current Medications Dextrose/Lactated Ringer's 1,000 ml @ 125 mls/hr Q8H IV Last administered on 06/06/18at 04:03; Admin Dose 125 MLS/HR; Start 06/03/18 at 13:00 Morphine Sulfate (morphine) 2 mg Q2H PRN IV SEVERE PAIN LEVEL 7-10 Last administered on 06/05/18at 22:15; Admin Dose 2 MG; Start 06/03/18 at 13:00 Clonidine (Catapres) 0.1 mg Q4H PRN PO sbp>150; Start 06/03/18 at 13:00 Ondansetron HCl (Zofran Inj) 4 mg Q6H PRN IV NAUSEA AND/OR VOMITING; Start 06/03/18 at 13:00 Amlodipine Besylate (Norvasc) 10 mg DAILY PO Last administered on 06/05/18 08:49; Admin Dose 10 MG; Start 06/04/18 at 09:00 Paroxetine HCl (Paxil) 20 mg DAILY PO Last administered on 06/05/18 08:48; Admin Dose 20 MG; Start 06/04/18 at 09:00 Acetaminophen/ Hydrocodone Bitart ([place] (7.5-325)) 1 tab Q4H PRN PO MODERATE PAIN LEVEL 4-6 Last administered on 3/2/19at 04:03; Admin Dose 1 TAB; Start 06/04/18 at 07:30 DARIUS CANO PA-C Jun 06, 2018 08:52
[2018-06-06] MEDS: PAROXETINE 20 MG TAB PO SCH (08:53)
[2018-06-06] MEDS: AMLODIPINE 10 MG TAB PO SCH (08:54)
--- NOTE | 2018-06-06 13:42 | PN ---
Date/Time of Note Date/Time of Note DATE: 06/06/18 TIME: 13:41 Assessment/Plan VTE Prophylaxis Risk score (from Ns)>0 risk: 8 SCD applied (from Ns): Yes Lines/Catheters IV Catheter Type (from Nrs): Peripheral IV Urinary Cath still in place: Yes Reason Cath still needed: urinary retention Assessment/Plan Assessment/Plan 1. Acute respiratory failure due to Staphylococcus aureus. The patient's vanco was discontinued yesterday. The patient still has mild leukocytosis but also is on steroid which I will taper off. 2. Seizure disorder. Tegretol level is 7.8. The patient is being followed by Neurology. 3. Nonoliguric acute kidney injury and hypermagnesemia, improved. The patient did require hemodialysis. 4. History of chronic obstructive pulmonary disease. Continue breathing treatment. 5. Hypothyroidism. We will resume her oral dose of 75 mcg levothyroxine and we will repeat TSH and T4. 6. Deconditioning. Continue physical therapy. The patient might need short- term SNF. Spoke with discharge planning. 7. Anemia. The patient has significant drop of hemoglobin from 11.7 on the first day, now down to 7.6. We will order stool OB and also hem/onc eval. Further recommendation will depend on the patient's hospital course. Result Diagram: 06/06/18 1042 06/06/18 1042 Results 24hrs Laboratory Tests Test 06/06/18 10:42 White Blood Count 5.8 # Red Blood Count 3.73 L Hemoglobin 11.0 L Hematocrit 34.1 L Mean Corpuscular Volume 91.4 Mean Corpuscular Hemoglobin 29.5 Mean Corpuscular Hemoglobin Concent 32.3 Red Cell Distribution Width 12.6 Platelet Count 180 Mean Platelet Volume 10.5 H Immature Granulocytes % 0.300 Neutrophils % 62.5 Lymphocytes % 23.5 Monocytes % 12.1 H Eosinophils % 0.7 Basophils % 0.9 Nucleated Red Blood Cells % 0.0 Immature Granulocytes # 0.020 Neutrophils # 3.6 Lymphocytes # 1.4 Monocytes # 0.7 Eosinophils # 0.0 Basophils # 0.1 Nucleated Red Blood Cells # 0.0 Sodium Level 140 Potassium Level 3.5 Chloride Level 100 Carbon Dioxide Level 34 H Anion Gap 6 Blood Urea Nitrogen 2 L Creatinine 0.43 L Est Glomerular Filtrat Rate mL/min > 60 Glucose Level 124 Calcium Level 8.2 L Exam/Review of Systems Exam Vitals Vital Signs Date Temp Pulse Resp B/P (MAP) Pulse Ox O2 O2 Flow FiO2 Time Delivery Rate 06/06/18 98.5 81 18 115/56 93 Nasal 08:03 (75) Cannula 06/03/18 2.0 20:00 Intake and Output 06/05/18 06/05/18 06/06/18 1515:00 23:00 07:00 IntakeIntake Total 1220 ml 680 ml 1020 ml OutputOutput Total 1630 ml 1260 ml BalanceBalance 1220 ml -950 ml -240 ml Results Results 24hrs Laboratory Tests Test 06/06/18 10:42 White Blood Count 5.8 # Red Blood Count 3.73 L Hemoglobin 11.0 L Hematocrit 34.1 L Mean Corpuscular Volume 91.4 Mean Corpuscular Hemoglobin 29.5 Mean Corpuscular Hemoglobin Concent 32.3 Red Cell Distribution Width 12.6 Platelet Count 180 Mean Platelet Volume 10.5 H Immature Granulocytes % 0.300 Neutrophils % 62.5 Lymphocytes % 23.5 Monocytes % 12.1 H Eosinophils % 0.7 Basophils % 0.9 Nucleated Red Blood Cells % 0.0 Immature Granulocytes # 0.020 Neutrophils # 3.6 Lymphocytes # 1.4 Monocytes # 0.7 Eosinophils # 0.0 Basophils # 0.1 Nucleated Red Blood Cells # 0.0 Sodium Level 140 Potassium Level 3.5 Chloride Level 100 Carbon Dioxide Level 34 H Anion Gap 6 Blood Urea Nitrogen 2 L Creatinine 0.43 L Est Glomerular Filtrat Rate mL/min > 60 Glucose Level 124 Calcium Level 8.2 L Medications Medication Current Medications Dextrose/Lactated Ringer's 1,000 ml @ 125 mls/hr Q8H IV Last administered on at 04:03; Admin Dose 125 MLS/HR; Start 06/03/18 at 13:00 Morphine Sulfate (morphine) 2 mg Q2H PRN IV SEVERE PAIN LEVEL 7-10 Last administered on 06/05/18at 22:15; Admin Dose 2 MG; Start 06/03/18 at 13:00 Clonidine (Catapres) 0.1 mg Q4H PRN PO sbp>150; Start 06/03/18 at 13:00 Ondansetron HCl (Zofran Inj) 4 mg Q6H PRN IV NAUSEA AND/OR VOMITING; Start 06/03/18 at 13:00 Amlodipine Besylate (Norvasc) 10 mg DAILY PO Last administered on 06/06/18 08:54; Admin Dose 10 MG; Start 06/04/18 at 09:00 Paroxetine HCl (Paxil) 20 mg DAILY PO Last administered on 06/06/18 08:53; Admin Dose 20 MG; Start 06/04/18 at 09:00 Acetaminophen/ Hydrocodone Bitart ([place] (7.5-325)) 1 tab Q4H PRN PO MODERATE PAIN LEVEL 4-6 Last administered on 06/06/18 12:17; Admin Dose 1 TAB; Start 06/04/18 at 07:30 AYO BERGER Jun 06, 2018 13:42
[2018-06-06 14:38] VITALS: BP 120/58; PULSE 87; RESP 12
--- NOTE | 2018-06-06 14:48 | CONS ---
Assessment/Plan Assessment/Plan Assessment/Plan (Daily) IMP: 1. Sleep-disordered breathing/MICHAEL RECS: 1. Start CPAP 10 cm H20 during sleep 2. Sleep hygiene Consultation Date/Type/Reason Admit Date/Time Jun 03, 2018 at 10:21 Date of Consultation: Jun 07, 2018 Type of Consult Pulm/Sleep Date/Time of Note DATE: 06/06/18 TIME: 14:43 Hx of Present Illness Briefly, this is a 63-year-old female with history of obesity, HTN, MICHAEL on CPAP, and spinal stenosis with associated radiculopathy s/p lumber laminectomy POD#3. Constitutional: no complaints Eyes: no complaints ENT: no complaints Respiratory: no complaints Cardiovascular: no complaints Gastrointestinal: no complaints Genitourinary: no complaints Musculoskeletal: no complaints Skin: no complaints Neurologic: no complaints Endocrine: no complaints Lymphatic: no complaints Psychological: no complaints Immunologic: no complaints Past Medical History Medical History: hypertension, other (Chronic Back pain) Home Meds Reported Medications Paroxetine Hcl* (Paxil*) 20 Mg Tablet, 20 MG PO DAILY, TAB 06/03/18 Calcium Carbonate/Vitamin D3 ([place] 500+D Tablet) 1 Each Tablet, 1 EACH PO DAILY, TAB 06/03/18 Amlodipine Besylate* (Amlodipine Besylate*) 10 Mg Tablet, 10 MG PO DAILY, #30 TAB 06/03/18 Aspirin (Low Dose Aspirin) 81 Mg Tablet.dr, 81 MG PO DAILY, #30 TAB 06/03/18 Discontinued Reported Medications Amlodipine Besylate* (Norvasc*) 10 Mg Tablet, 20 MG PO DAILY, TAB 03/21/17 Aspirin* (Aspirin* EC) 81 Mg Tablet.dr, 81 MG PO DAILY, TAB 03/21/17 Ergocalciferol (Vitamin D) 400 Unit Capsule, 400 UNIT PO DAILY, CAP 03/28/16 Paroxetine Hcl* (Paxil*) 20 Mg Tablet, 20 MG PO DAILY, TAB 03/28/16 Amitriptyline Hcl* (Amitriptyline Hcl*) 10 Mg Tablet, 10 MG PO QHS, #30 TAB 03/28/16 Tramadol HCl (Tramadol HCl) 50 Mg Tablet, 50 MG PO Q6 PRN for PAIN, #120 TAB 03/28/16 Medications Current Medications Dextrose/Lactated Ringer's 1,000 ml @ 125 mls/hr Q8H IV Last administered on 06/06/18at 04:03; Admin Dose 125 MLS/HR; Start 06/03/18 at 13:00 Morphine Sulfate (morphine) 2 mg Q2H PRN IV SEVERE PAIN LEVEL 7-10 Last administered on 06/05/18at 22:15; Admin Dose 2 MG; Start 06/03/18 at 13:00 Clonidine (Catapres) 0.1 mg Q4H PRN PO sbp>150; Start 06/03/18 at 13:00 Ondansetron HCl (Zofran Inj) 4 mg Q6H PRN IV NAUSEA AND/OR VOMITING; Start 06/03/18 at 13:00 Amlodipine Besylate (Norvasc) 10 mg DAILY PO Last administered on 06/06/18at 08:54; Admin Dose 10 MG; Start 06/04/18 at 09:00 Paroxetine HCl (Paxil) 20 mg DAILY PO Last administered on 06/06/18at 08:53; Admin Dose 20 MG; Start 06/04/18 at 09:00 Acetaminophen/ Hydrocodone Bitart ([place] (7.5-325)) 1 tab Q4H PRN PO MODERATE PAIN LEVEL 4-6 Last administered on 06/06/18at 12:17; Admin Dose 1 TAB; Start 06/04/18 at 07:30 Allergies: Coded Allergies: No Known Drug Allergies (Verified Allergy, Unknown, 06/03/18) Family History Significant Family History: no pertinent family hx Social History Alcohol Use: none Smoking Status: Current every day smoker Drug Use: none Exam/Review of Systems Exam Vitals Vital Signs Date Temp Pulse Resp B/P (MAP) Pulse Ox O2 O2 Flow FiO2 Time Delivery Rate 06/06/18 98.1 87 12 120/58 92 14:38 (78) 06/06/18 Nasal 08:03 Cannula 06/03/18 2.0 20:00 Intake and Output 06/05/18 06/05/18 06/06/18 1414:59 22:59 06:59 IntakeIntake Total 1220 ml 680 ml 1020 ml OutputOutput Total 1630 ml 1260 ml BalanceBalance 1220 ml -950 ml -240 ml Constitutional: alert, oriented, well developed Psych: no complaints, nl mood/affect Head: normocephalic, atraumatic Eyes: nl conjunctiva, EOMI, nl lids ENMT: nl external ears & nose, nl lips & teeth, nl nasal mucosa & septum Neck: supple, non-tender Respiratory: clear to auscultation, normal air movement Cardiovascular: regular rate and rhythm, nl pulses Gastrointestinal: soft, nl liver, spleen, non-tender Musculoskeletal: nl extremities to inspection Extremities: normal pulses Neurological: INVESTMENT PROFESSIONAL II-XII intact, DTR's symmetric Skin: nl turgor Results Result Diagram: 06/06/18 1042 06/06/18 1042 Results 24hrs Laboratory Tests Test 06/06/18 10:42 White Blood Count 5.8 # Red Blood Count 3.73 L Hemoglobin 11.0 L Hematocrit 34.1 L Mean Corpuscular Volume 91.4 Mean Corpuscular Hemoglobin 29.5 Mean Corpuscular Hemoglobin Concent 32.3 Red Cell Distribution Width 12.6 Platelet Count 180 Mean Platelet Volume 10.5 H Immature Granulocytes % 0.300 Neutrophils % 62.5 Lymphocytes % 23.5 Monocytes % 12.1 H Eosinophils % 0.7 Basophils % 0.9 Nucleated Red Blood Cells % 0.0 Immature Granulocytes # 0.020 Neutrophils # 3.6 Lymphocytes # 1.4 Monocytes # 0.7 Eosinophils # 0.0 Basophils # 0.1 Nucleated Red Blood Cells # 0.0 Sodium Level 140 Potassium Level 3.5 Chloride Level 100 Carbon Dioxide Level 34 H Anion Gap 6 Blood Urea Nitrogen 2 L Creatinine 0.43 L Est Glomerular Filtrat Rate mL/min > 60 Glucose Level 124 Calcium Level 8.2 L Medications Medication Current Medications Dextrose/Lactated Ringer's 1,000 ml @ 125 mls/hr Q8H IV Last administered on 06/06/18at 04:03; Admin Dose 125 MLS/HR; Start 06/03/18 at 13:00 Morphine Sulfate (morphine) 2 mg Q2H PRN IV SEVERE PAIN LEVEL 7-10 Last admin istered on 06/05/18at 22:15; Admin Dose 2 MG; Start 06/03/18 at 13:00 Clonidine (Catapres) 0.1 mg Q4H PRN PO sbp>150; Start 06/03/18 at 13:00 Ondansetron HCl (Zofran Inj) 4 mg Q6H PRN IV NAUSEA AND/OR VOMITING; Start 06/03/18 at 13:00 Amlodipine Besylate (Norvasc) 10 mg DAILY PO Last administered on 06/06/18 08:54; Admin Dose 10 MG; Start 06/04/18 at 09:00 Paroxetine HCl (Paxil) 20 mg DAILY PO Last administered on 06/06/18at 08:53; Admin Dose 20 MG; Start 06/04/18 at 09:00 Acetaminophen/ Hydrocodone Bitart ([place] (7.5-325)) 1 tab Q4H PRN PO MODERATE PAIN LEVEL 4-6 Last administered on 06/06/18at 12:17; Admin Dose 1 TAB; Start 06/04/18 at 07:30 NICOLA QUINONEZ MD Jun 06, 2018 14:48
[2018-06-06 20:40] VITALS: BP 111/54; PULSE 84; RESP 18
[2018-06-06 23:36] VITALS: PULSE 77
[2018-06-07] VITALS (8 sets, daily range): BP systolic 91–118; BP diastolic 52–63; PULSE 70–97; RESP 18–19
[2018-06-07] MEDS: DEXTROSE 5%-LR 1,000 ML IV SCH ×2 (03:08→12:21)
[2018-06-07] MEDS: PAROXETINE 20 MG TAB PO SCH (09:24)
[2018-06-07] MEDS: HYDROCODONE/APAP (7.5/325) TAB PO PRN ×3 (09:24→18:52)
[2018-06-07] MEDS: AMLODIPINE 10 MG TAB PO SCH (09:25)
[2018-06-07] MEDS ORDERED: DOCUSATE SODIUM 250 MG CAP PO PRN (09:30)
[2018-06-07] MEDS ORDERED: POTASSIUM CHLORIDE (SR) 10 MEQ TAB PO ONE (11:00)
--- NOTE | 2018-06-07 13:15 | PN ---
DATE: 06/07/2018 SUBJECTIVE: The patient was put on BiPAP last night and slept well. Denies any chest pain. Postope rative pain, well controlled. As per neurosurgery, patient remains on full liquid diet. Denies any chest pain or shortness of breath. PHYSICAL EXAMINATION: GENERAL: Awake, alert, no fever or chills. VITAL SIGNS: Temperature 98.9, pulse 70, respiration 18, blood pressure 112/63, O2 saturation 95%. HEENT: No eye discharge or redness. Conjunctivae are normal. Oropharynx clear. NECK: No mass. CHEST: Fairly clear. CARDIOVASCULAR: S1, S2 normal. ABDOMEN: Soft, nondistended, nontender. EXTREMITIES: No leg edema. NEUROLOGIC: The patient is awake, alert. LABORATORY DATA: WBC 6.8, hemoglobin 10.9, platelet 219. Sodium 141, potassium 3.4, BUN 4, creatini ne 0.3, glucose 99. IMPRESSION 1. Lumbar spondylosis with stenosis status post surgery. 2. Obstructive sleep apnea. Continue bipap/cpap. 3. Hypertension. Blood pressure this morning was 91, currently 112. Will decrease her Norvasc to 5 mg. 4. Hypokalemia. Will replace potassium. 5. DC once cleared by neurosurgery. Dictated By: ALFONSO TRIPATHI MD AB/NTS Conf#: [id number] DID#: [id number] CC: DARRON TINAJERO MD;*EndCC*
--- NOTE | 2018-06-07 14:04 | CONS ---
Consult Date/Type/Reason Admit Date/Time Jun 03, 2018 at 10:21 Initial Consult Date 06/07/18 Type of Consultation: Pulm Date/Time of Note DATE: 06/07/18 TIME: 14:03 Subjective No events. Used CPAP last pm. Objective Vitals Vital Signs Date Temp Pulse Resp B/P (MAP) Pulse Ox O2 O2 Flow FiO2 Time Delivery Rate 06/07/18 98.9 78 18 112/63 95 07:53 (79) 06/07/18 30 06:08 06/06/18 Nasal 08:03 Cannula 06/03/18 2.0 20:00 Intake and Output 06/06/18 06/06/18 06/07/18 1515:00 23:00 07:00 IntakeIntake Total 1420 ml 250 ml OutputOutput Total 1100 ml BalanceBalance -1100 ml 1420 ml 250 ml Exam HEENT: Neck supple; no JVD; no LAD CVS: RRR, S1 and S2 CHEST: Clear ABD: Soft, NT, + BS EXT: No c/c/e Results/Medications Result Diagram: 06/07/18 0423 06/07/18 0423 Results 24 hrs Laboratory Tests Test 06/07/18 04:23 White Blood Count 6.8 Red Blood Count 3.70 L Hemoglobin 10.9 L Hematocrit 33.7 L Mean Corpuscular Volume 91.1 Mean Corpuscular Hemoglobin 29.5 Mean Corpuscular Hemoglobin Concent 32.3 Red Cell Distribution Width 12.7 Platelet Count 219 # Mean Platelet Volume 10.7 H Immature Granulocytes % 0.300 Neutrophils % 51.7 Lymphocytes % 35.7 Monocytes % 10.5 Eosinophils % 1.2 Basophils % 0.6 Nucleated Red Blood Cells % 0.0 Immature Granulocytes # 0.020 Neutrophils # 3.5 Lymphocytes # 2.4 Monocytes # 0.7 Eosinophils # 0.1 Basophils # 0.0 Nucleated Red Blood Cells # 0.0 Sodium Level 141 Potassium Level 3.4 L Chloride Level 102 Carbon Dioxide Level 36 H Anion Gap 3 L Blood Urea Nitrogen 4 L Creatinine 0.38 L Est Glomerular Filtrat Rate mL/min > 60 Glucose Level 99 Calcium Level 8.3 L Home Meds Reported Medications Paroxetine Hcl* (Paxil*) 20 Mg Tablet, 20 MG PO DAILY, TAB 06/03/18 Calcium Carbonate/Vitamin D3 ([place] 500+D Tablet) 1 Each Tablet, 1 EACH PO DAILY, TAB 06/03/18 Amlodipine Besylate* (Amlodipine Besylate*) 10 Mg Tablet, 10 MG PO DAILY, #30 TAB 06/03/18 Aspirin (Low Dose Aspirin) 81 Mg Tablet.dr, 81 MG PO DAILY, #30 TAB 06/03/18 Discontinued Reported Medications Amlodipine Besylate* (Norvasc*) 10 Mg Tablet, 20 MG PO DAILY, TAB 03/21/17 Aspirin* (Aspirin* EC) 81 Mg Tablet.dr, 81 MG PO DAILY, TAB 03/21/17 Ergocalciferol (Vitamin D) 400 Unit Capsule, 400 UNIT PO DAILY, CAP 03/28/16 Paroxetine Hcl* (Paxil*) 20 Mg Tablet, 20 MG PO DAILY, TAB 03/28/16 Amitriptyline Hcl* (Amitriptyline Hcl*) 10 Mg Tablet, 10 MG PO QHS, #30 TAB 03/28/16 Tramadol HCl (Tramadol HCl) 50 Mg Tablet, 50 MG PO Q6 PRN for PAIN, #120 TAB 03/28/16 Medications Current Medications Dextrose/Lactated Ringer's 1,000 ml @ 60 mls/hr [id number] IV Last administered on 06/07/18at 12:21; Admin Dose 60 MLS/HR; Start 06/03/18 at 13:00 Morphine Sulfate (morphine) 2 mg Q2H PRN IV SEVERE PAIN LEVEL 7-10 Last administered on 06/05/18at 22:15; Admin Dose 2 MG; Start 06/03/18 at 13:00 Clonidine (Catapres) 0.1 mg Q4H PRN PO sbp>150; Start 06/03/18 at 13:00 Ondansetron HCl (Zofran Inj) 4 mg Q6H PRN IV NAUSEA AND/OR VOMITING; Start 06/03/18 at 13:00 Paroxetine HCl (Paxil) 20 mg DAILY PO Last administered on 06/07/18at 09:24; A dmin Dose 20 MG; Start 06/04/18 at 09:00 Acetaminophen/ Hydrocodone Bitart ([place] (7.5-325)) 1 tab Q4H PRN PO MODERATE PAIN LEVEL 4-6 Last administered on 06/07/18at 13:51; Admin Dose 1 TAB; Start 05/09 11/23 at 07:30 Docusate Sodium (Colace) 250 mg DAILY PRN PO CONSTIPATION Last administered on 06/07/18at 09:27; Admin Dose 250 MG; Start 06/07/18 at 09:30 Amlodipine Besylate (Norvasc) 5 mg DAILY PO ; Start 06/08/18 at 09:00 Assessment/Plan Assessment/Plan (Daily) IMP: 1. Sleep-disordered breathing/MICHAEL RECS: 1. CPAP 10 cm H20 during sleep 2. Sleep hygiene NICOLA QUINONEZ MD Jun 07, 2018 14:04
[2018-06-07] MEDS: morphine 2 MG INJ IV PRN (23:33)
[2018-06-08] VITALS (9 sets, daily range): BP systolic 119–133; BP diastolic 58–65; PULSE 74–87; RESP 18–19
[2018-06-08] MEDS: HYDROCODONE/APAP (7.5/325) TAB PO PRN ×3 (02:44→20:14)
[2018-06-08] MEDS: DEXTROSE 5%-LR 1,000 ML IV SCH (06:20)
--- NOTE | 2018-06-08 08:27 | CONS ---
Assessment/Plan Assessment/Plan Assessment/Plan (Daily) seen and examined awake alert follows moves all sensation intact no bm, passing gas bm not distended, soft, no nausea/vomiting advance diet to regular may go home within 24hrs Consultation Date/Type/Reason Admit Date/Time Jun 03, 2018 at 10:21 Initial Consult Date Date/Time of Note DATE: 06/08/18 TIME: 08:26 Exam/Review of Systems Exam Vitals Vital Signs Date Temp Pulse Resp B/P (MAP) Pulse Ox O2 O2 Flow FiO2 Time Delivery Rate 06/08/18 97 3.0 07:56 06/08/18 97.2 18 119/62 07:39 (81) 06/08/18 76 30 03:10 06/07/18 Room Air 14:50 Intake and Output 06/07/18 06/07/18 06/08/18 1515:00 23:00 07:00 IntakeIntake Total 1100 ml 640 ml BalanceBalance 1100 ml 640 ml Results Result Diagram: 06/07/18 0423 06/08/18 0439 Results 24hrs Laboratory Tests Test 06/08/18 04:39 Sodium Level 141 Potassium Level 3.5 Chloride Level 103 Carbon Dioxide Level 35 H Anion Gap 3 L Blood Urea Nitrogen 3 L Creatinine 0.41 L Est Glomerular Filtrat Rate mL/min > 60 Glucose Level 94 Calcium Level 8.4 Medications Medication Current Medications Dextrose/Lactated Ringer's 1,000 ml @ 60 mls/hr [id number] IV Last administered on 06/08/18at 06:20; Admin Dose 60 MLS/HR; Start 06/03/18 at 13:00 Morphine Sulfate (morphine) 2 mg Q2H PRN IV SEVERE PAIN LEVEL 7-10 Last administered on 06/07/18at 23:33; Admin Dose 2 MG; Start 06/03/18 at 13:00 Clonidine (Catapres) 0.1 mg Q4H PRN PO sbp>150; Start 06/03/18 at 13:00 Ondansetron HCl (Zofran Inj) 4 mg Q6H PRN IV NAUSEA AND/OR VOMITING; Start 06/03/18 at 13:00 Paroxetine HCl (Paxil) 20 mg DAILY PO Last administered on 06/07/18at 09:24; Admin Dose 20 MG; Start 06/04/18 at 09:00 Acetaminophen/ Hydrocodone Bitart ([place] (7.5-325)) 1 tab Q4H PRN PO MODERATE PAIN LEVEL 4-6 Last administered on 06/08/18at 02:44; Admin Dose 1 TAB; Start 06/04/18 at 07:30 Docusate Sodium (Colace) 250 mg DAILY PRN PO CONSTIPATION Last administered on 06/07/18at 09:27; Admin Dose 250 MG; Start 06/07/18 at 09:30 Amlodipine Besylate (Norvasc) 5 mg DAILY PO ; Start 06/08/18 at 09:00 DARIUS CANO PA-C Jun 08, 2018 08:27
[2018-06-08] MEDS: PAROXETINE 20 MG TAB PO SCH (09:00)
[2018-06-08] MEDS ORDERED: POLYETHYLENE GLYCOL 17 GM PACKET PO ONE (09:00)
[2018-06-08] MEDS: AMLODIPINE 5 MG TAB PO SCH (09:01)
[2018-06-08] MEDS ORDERED: DOCU-144 PO (17:29)
[2018-06-08] MEDS ORDERED: BISA5TAB6 PO (17:29)
[2018-06-08] MEDS: DOCUSATE SODIUM 100 MG CAP PO SCH (18:38)
--- NOTE | 2018-06-08 22:58 | PN ---
Date/Time of Note Date/Time of Note DATE: 06/08/18 TIME: 22:54 Assessment/Plan VTE Prophylaxis Risk score (from Ns)>0 risk: 8 SCD applied (from Ns): Yes Pharmacological prophylaxis: NA/contraindicated Pharm contraindication: surgical contra Lines/Catheters IV Catheter Type (from Nrsg): Peripheral IV Urinary Cath still in place: No Assessment/Plan Hospital Course Patient complains of constipation continue on current bowel regimen, anticipate discharge after clearance by neurosurgery possibly tomorrow. Assessment/Plan 1. Lumbar spondylosis with stenosis status post surgery by Dr. Bland. 2. Obstructive sleep apnea. Continue bipap/cpap. 3. Hypertension. Continue Norvasc Further recommendations based on clinical course. Plan of care discussed with Dr. Hidalgo. Result Diagram: 06/07/18 0423 06/08/18 0439 Results 24hrs Laboratory Tests Test 06/08/18 04:39 Sodium Level 141 Potassium Level 3.5 Chloride Level 103 Carbon Dioxide Level 35 H Anion Gap 3 L Blood Urea Nitrogen 3 L Creatinine 0.41 L Est Glomerular Filtrat Rate mL/min > 60 Glucose Level 94 Calcium Level 8.4 Exam/Review of Systems Exam Vitals Vital Signs Date Temp Pulse Resp B/P (MAP) Pulse Ox O2 O2 Flow FiO2 Time Delivery Rate 06/08/18 83 99 30 21:11 06/08/18 98.6 18 133/65 20:30 (87) 06/08/18 3.0 18:07 06/07/18 Room Air 14:50 Intake and Output 06/07/18 06/07/18 06/08/18 1515:00 23:00 07:00 IntakeIntake Total 1100 ml 640 ml BalanceBalance 1100 ml 640 ml Results Results 24hrs Laboratory Tests Test 06/08/18 04:39 Sodium Level 141 Potassium Level 3.5 Chloride Level 103 Carbon Dioxide Level 35 H Anion Gap 3 L Blood Urea Nitrogen 3 L Creatinine 0.41 L Est Glomerular Filtrat Rate mL/min > 60 Glucose Level 94 Calcium Level 8.4 Medications Medication Current Medications Dextrose/Lactated Ringer's 1,000 ml @ 60 mls/hr [id number] IV Last administered on 06/08/18at 06:20; Admin Dose 60 MLS/HR; Start 06/03/18 at 13:00 Morphine Sulfate (morphine) 2 mg Q2H PRN IV SEVERE PAIN LEVEL 7-10 Last administered on 06/07/18 23:33; Admin Dose 2 MG; Start 06/03/18 at 13:00 Clonidine (Catapres) 0.1 mg Q4H PRN PO sbp>150; Start 06/03/18 at 13:00 Ondansetron HCl (Zofran Inj) 4 mg Q6H PRN IV NAUSEA AND/OR VOMITING; Start 06/03/18 at 13:00 Paroxetine HCl (Paxil) 20 mg DAILY PO Last administered on 06/08/18 09:00; A dmin Dose 20 MG; Start 06/04/18 at 09:00 Acetaminophen/ Hydrocodone Bitart ([place] (7.5-325)) 1 tab Q4H PRN PO MODERATE PAIN LEVEL 4-6 Last administered on 06/08/18 20:14; Admin Dose 1 TAB; Start 05/09 11/23 at 07:30 Docusate Sodium (Colace) 250 mg DAILY PRN PO CONSTIPATION Last administered on 06/07/18 09:27; Admin Dose 250 MG; Start 06/07/18 at 09:30 Amlodipine Besylate (Norvasc) 5 mg DAILY PO Last administered on 06/08/18 09:01; Admin Dose 5 MG; Start 06/08/18 at 09:00 Docusate Sodium (Colace) 100 mg DAILY PO Last administered on 06/08/18 18:38; Admin Dose 100 MG; Start 06/08/18 at 17:30 RANDAL WHEELER Jun 08, 2018 22:57
[2018-06-09] MEDS: DEXTROSE 5%-LR 1,000 ML IV SCH (00:49)
[2018-06-09 01:05] VITALS: PULSE 78
[2018-06-09 01:44] VITALS: BP 106/59; PULSE 69; RESP 18
[2018-06-09] MEDS: HYDROCODONE/APAP (7.5/325) TAB PO PRN ×2 (03:12→09:53)
[2018-06-09 07:50] VITALS: BP 133/63; PULSE 84; RESP 18
[2018-06-09] MEDS: DOCUSATE SODIUM 100 MG CAP PO SCH (09:11)
[2018-06-09] MEDS: AMLODIPINE 5 MG TAB PO SCH (09:11)
[2018-06-09] MEDS: PAROXETINE 20 MG TAB PO SCH (09:12)
[2018-06-09] MEDS ORDERED: LACTULOSE 30ML CUP PO ONE (09:30)
[2018-06-09 14:00] VITALS: BP 120/60; PULSE 80; RESP 18
== END 2018-06-09 16:26 | disposition home health service (06) | DRG 460 ==
LOC: REC 10:21 → MS1 17:24
PROVIDERS: ADMIT Neurological Surgery; ATTEND Neurological Surgery
PROC: 0SP004Z Removal of Internal Fixation Device from Lumbar Vertebral Joint, Open Approach (ICD-10-PCS; 2018-06-03)
PROC: 0SG0071 Fusion of Lumbar Vertebral Joint with Autologous Tissue Substitute, Posterior Approach, Posterior Column, Open Approach (ICD-10-PCS; principal; 2018-06-03 12:30)
PROC: 5A09357 Assistance with Respiratory Ventilation, Less than 24 Consecutive Hours, Continuous Positive Airway Pressure (ICD-10-PCS; 2018-06-07)
DX: M47.26 Other spondylosis with radiculopathy, lumbar region (principal); M48.061 Spinal stenosis, lumbar region without neurogenic claudication; M43.16 Spondylolisthesis, lumbar region; I10 Essential (primary) hypertension; E78.5 Hyperlipidemia, unspecified; F17.200 Nicotine dependence, unspecified, uncomplicated; G47.33 Obstructive sleep apnea (adult) (pediatric); F32.9 Major depressive disorder, single episode, unspecified; E87.6 Hypokalemia; E66.01 Morbid (severe) obesity due to excess calories; Z68.37 Body mass index [BMI] 37.0-37.9, adult; Z98.1 Arthrodesis status
CPT/HCPCS: 72100; 80048; 85025; 86900; 86901; 87086; 88300; 94660; 97116; 97161; 97530; J0360; J0690; J1100; J1170; J2250; J2270; J2370; J2405; J3010; J7040; J7121